=== PATIENT | female | born 1940 | race Caucasian/White ===

== ENCOUNTER 2024-12-12 14:09 | Outpatient (REF) | payer MEDICARE, SELFPAY ==
--- NOTE | ~2024-12-12 | XR_ITS ---
EXAMINATION: XR CHEST CLINICAL INFORMATION: SHORTNESS OF BREATH COMPARISON: None available. TECHNIQUE: AP lateral and oblique views of the chest, 5 views. FINDINGS: Hyperinflated lungs. Bilateral apical lung scarring. No consolidation, pleural effusion or pneumothorax. Cardiomediastinal silhouette size is normal. Calcifications in the thoracic aorta wall. Osteopenia versus osteoporosis. Multilevel thoracolumbar spondylosis. No acute cortical disruption in the ribs. 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 No acute airspace disease. Multilevel spondylosis and scoliosis. No gross acute rib fracture. Electronically signed by: Durga Greco MD 12/12/2024 02:47 PM EDT
--- OUTSIDE RECORDS SUMMARY | 2024-12-12 14:27 | XMS_ITS | Encounter Summary ---
Author Organization [facility] Address [address] [facility] [place] [address] Care Team Providers Care Carbonizer Name Role Phone Froilan Chao MD Primary Care Provider [phone] Encounter Details Date Type Department Care Team Description 09/27/2014 Meat Carver Report Medical Records [address] [place] [address] Dell Lopez Social History Tobacco Use Types Packs/Day Years Used Date Smoking Tobacco: Never Smokeless Tobacco: Never Alcohol Use Standard Drinks/Week Comments Yes 0 (1 standard drink = 0.6 oz pur e alcohol) occ Sex Assigned at Date Recorded Not on file Job Start Date Occupation Industry Not on file Not on file Not on file documented as of this encounter Plan of Treatment Not on file documented as of this encounter Visit Diagnoses Not on filedocumented in this encounter Additional Health Concerns Infection Onset Date Last Indicated Resolved Time COVID-19 01/25/2024 01/25/2024 documented as of this encounter Care Teams Carbonizer Relationship Specialty Start Date End Date Froilan Chao MD [address] [place], [place] [phone] PCP - General 10/31/09 documented as of this encounter
--- OUTSIDE RECORDS SUMMARY | 2024-12-12 14:27 | XMS_ITS | Encounter Summary ---
Author Organization [facility] Address [address] [facility] [place] [address] Care Team Providers Care Monument Mason Name Role Phone Froilan Chao MD Primary Care Provider [phone] Encounter Details Date Type Department Care Team Description 09/29/2022 Screen Roller Report Medical Records [address] [place] [address] Ciaran Mehta MD Social History Tobacco Use Types Packs/Day Years [...] documented as of this encounter Care Teams Monument Mason Relationship Specialty Start Date End Date Froilan Chao MD [address] [place] [address] PCP - General 10/31/09 documented as of this encounter
--- OUTSIDE RECORDS SUMMARY | 2024-12-12 14:27 | XMS_ITS | Encounter Summary ---
Author Organization [facility] Address [address] [place] [address] Care Team Providers Care Washing Machine Loader And Puller Name Role Phone Froilan Chao MD Primary Care Provider Encounter Details Date Type Department Care Team Description 11/03/2017 Vascular Surgeon Report Medical Records [address] [place] [address] Ciaran Mehta MD Social History Tobacco Use [...] documented as of this encounter Care Teams Washing Machine Loader And Puller Relationship Specialty Start Date End Date Froilan Chao MD [address] [place] [address] PCP - General 10/31/09 documented as of this encounter
--- OUTSIDE RECORDS SUMMARY | 2024-12-12 14:27 | XMS_ITS | Encounter Summary ---
Author Organization [facility] Address [address] [facility] [place] [address] Care Team Providers Care Icing And Glaze Maker Name Role Phone Froilan Chao MD Primary Care Provider [phone] Encounter Details Date Type Department Care Team Description 12/25/2020 Military Science Instructor Report Medical Records [address] [place] [address] Sultana Kingston MD Social History Tobacco Use Types Packs/Day [...] documented as of this encounter Care Teams Icing And Glaze Maker Relationship Specialty Start Date End Date Froilan Chao MD [address] [place] [address] PCP - General 10/31/09 documented as of this encounter
--- OUTSIDE RECORDS SUMMARY | 2024-12-12 14:27 | XMS_ITS | Encounter Summary ---
Author Organization [facility] Address [address] [facility] [place] [address] Care Team Providers Care Traffic Attendant Name Role Phone Froilan Chao MD Primary Care Provider [phone] Encounter Details Date Type Department Care Team Description 02/08/2013 Maintenance Apprentice Report Medical Records [address] [place] [address] Sultana Kingston MD Social History Tobacco Use [...] documented as of this encounter Care Teams Traffic Attendant Relationship Specialty Start Date End Date Froilan Chao MD [address] [place] [address] PCP - General 10/31/09 documented as of this encounter
--- OUTSIDE RECORDS SUMMARY | 2024-12-12 14:27 | XMS_ITS | Encounter Summary ---
Author Organization [facility] Address [address] [facility] [place] [address] Care Team Providers Care Filter Tank Operator Name Role Phone Froilan Chao MD Primary Care Provider [phone] Encounter Details Date Type Department Care Team Description 01/30/2014 Arts And Humanities Council Director Report Medical Records [address] [place] [address] Sultana Kingston MD Social History Tobacco Use [...] documented as of this encounter Care Teams Filter Tank Operator Relationship Specialty Start Date End Date Froilan Chao MD [address] [place] [address] PCP - General 10/31/09 documented as of this encounter
--- OUTSIDE RECORDS SUMMARY | 2024-12-12 14:27 | XMS_ITS | Encounter Summary ---
Author Organization [facility] Address [address] [facility] [place] [address] Care Team Providers Care Automotive Product Specialist Name Role Phone Froilan Chao MD Primary Care Provider [phone] Encounter Details Date Type Department Care Team Description 02/11/2011 Expediter Report Medical Records [address] [place] [address] Armand Guthrie MD Social History Tobacco Use Types Packs/Day [...] documented as of this encounter Care Teams Automotive Product Specialist Relationship Specialty Start Date End Date Froilan Chao MD [address] [place] [address] PCP - General 10/31/09 documented as of this encounter
--- OUTSIDE RECORDS SUMMARY | 2024-12-12 14:27 | XMS_ITS | Encounter Summary ---
Author Organization [facility] Address [address] [facility] [place] [address] Care Team Providers Care Calender Machine Operator Helper Name Role Phone Froilan Chao MD Primary Care Provider [phone] Encounter Details Date Type Department Care Team Description 05/26/2014 Business Doc Medical Records [address] [place] [address] Abstract, Provider Social History Tobacco Use Types Packs/Day Years [...] documented as of this encounter Care Teams Calender Machine Operator Helper Relationship Specialty Start Date End Date Froilan Chao MD [address] [place], [place] [phone] PCP - General 10/31/09 documented as of this encounter
--- OUTSIDE RECORDS SUMMARY | 2024-12-12 14:27 | XMS_ITS | Encounter Summary ---
Author Organization [facility] Address [address] [facility] [place] [address] Care Team Providers Care Pharmaceutical Process Engineer Name Role Phone Froilan Chao MD Primary Care Provider [phone] Encounter Details Date Type Department Care Team Description 03/11/2013 Business Doc Medical Records [address] [place] [address] Abstract, Provider Social History Tobacco Use Types [...] documented as of this encounter Care Teams Pharmaceutical Process Engineer Relationship Specialty Start Date End Date Froilan Chao MD [address] [place], [place] [phone] PCP - General 10/31/09 documented as of this encounter
--- OUTSIDE RECORDS SUMMARY | 2024-12-12 14:27 | XMS_ITS | Encounter Summary ---
Author Organization [facility] Address [address] [place] [address] Care Team Providers Care Special Shopper Name Role Phone Froilan Chao MD Primary Care Provider [phone] Encounter Details Date Type Department Care Team Description 02/04/2021 Molder Feeder Report Medical Records [address] [place] [address] Nicci Ojeda NP Social History Tobacco Use Types Packs/Day Years Used Date Smoking Tobacco: Never Smokeless Tobacco: Never Alcohol Use Standard Drinks/Week Comments Yes 0 (1 standard drink = 0.6 oz pur e alcohol) occ Sex Assigned at Date Recorded Not on file Job Start Date Occupation Industry Not on file Not on file Not on file COVID-19 Exposure Response Date Recorded In the last month, have you been in contact with someone who was confirmed or suspected to have Coronavirus / COVID-19? No / Unsure 01/22/2021 3:27 PM EDT documented as of this encounter Plan of Treatment Not on file documented as of this encounter Visit Diagnoses Not on filedocumented in this encounter Additional Health Concerns Infection Onset Date Last Indicated Resolved Time COVID-19 01/25/2024 01/25/2024 documented as of this encounter Care Teams Special Shopper Relationship Specialty Start Date End Date Froilan Chao MD [address] [place] [address] PCP - General 10/31/09 documented as of this encounter
--- OUTSIDE RECORDS SUMMARY | 2024-12-12 14:27 | XMS_ITS | Encounter Summary ---
Author Organization [facility] Address [address] [facility] [place] [address] Care Team Providers Care Food Supervisor Name Role Phone Froilan Chao MD Primary Care Provider [phone] Encounter Details Date Type Department Care Team Description 04/12/2014 Hospital Medical Records [address] [place] [address] Elpidio Parker MD Social History Tobacco Use Types Packs/Day [...] documented as of this encounter Care Teams Food Supervisor Relationship Specialty Start Date End Date Froilan Chao MD [address] [place] [address] PCP - General 10/31/09 documented as of this encounter
--- OUTSIDE RECORDS SUMMARY | 2024-12-12 14:27 | XMS_ITS | Encounter Summary ---
Author Organization [facility] Address [address] [facility] [place] [address] Care Team Providers Care Fire Sprinkler Apparatus Inspector Name Role Phone Froilan Chao MD Primary Care Provider [phone] Encounter Details Date Type Department Care Team Description 10/03/2015 Operator And Truck Driver Report Medical Records [address] [place] [address] Sultana Kingston MD Social History Tobacco Use [...] documented as of this encounter Care Teams Fire Sprinkler Apparatus Inspector Relationship Specialty Start Date End Date Froilan Chao MD [address] [place] [address] PCP - General 10/31/09 documented as of this encounter
--- OUTSIDE RECORDS SUMMARY | 2024-12-12 14:27 | XMS_ITS | Encounter Summary ---
Author Organization [facility] Address [address] [facility] [place] [address] Care Team Providers Care Staff Veterinarian Name Role Phone Froilan Chao MD Primary Care Provider [phone] Encounter Details Date Type Department Care Team Description 03/11/2021 Pt. Non Urgent Medic al Question Adult Medicine [address] [id number] Vinita Hallman PA Social History Tobacco Use Types Packs/Day Years [...] documented as of this encounter Care Teams Staff Veterinarian Relationship Specialty Start Date End Date Froilan Chao MD [address] [place] [phone] PCP - General 10/31/09 documented as of this encounter
--- OUTSIDE RECORDS SUMMARY | 2024-12-12 14:27 | XMS_ITS | Encounter Summary ---
Author Organization [facility] Address [address] [facility] [place] [address] Care Team Providers Care Roving Carrier Name Role Phone Froilan Chao MD Primary Care Provider [phone] Encounter Details Date Type Department Care Team Description 10/08/2017 Supervisor Mold Yard Report Medical Records [address] [place] [address] Sultana Kingston MD Social History Tobacco Use [...] documented as of this encounter Care Teams Roving Carrier Relationship Specialty Start Date End Date Froilan Chao MD [address] [place] [address] PCP - General 10/31/09 documented as of this encounter
--- OUTSIDE RECORDS SUMMARY | 2024-12-12 14:27 | XMS_ITS | Encounter Summary ---
Author Organization [facility] Address [address] [place] [address] Care Team Providers Care Bark Grinder Name Role Phone Froilan Chao MD Primary Care Provider [phone] Encounter Details Date Type Department Care Team Description 01/07/2013 Fire Sprinkler Service Technician Report Medical Records [address] [place] [address] Ciaran Mehta MD Social History Tobacco Use [...] documented as of this encounter Care Teams Bark Grinder Relationship Specialty Start Date End Date Froilan Chao MD [address] [place] [address] PCP - General 10/31/09 documented as of this encounter
--- OUTSIDE RECORDS SUMMARY | 2024-12-12 14:27 | XMS_ITS | Encounter Summary ---
Author Organization [facility] Address [address] [facility] [place] [address] Care Team Providers Care Event Specialist Name Role Phone Froilan Chao MD Primary Care Provider [phone] Encounter Details Date Type Department Care Team Description 03/01/2010 Automatic Coin Machine Mechanic Report Medical Records [address] [place] [address] Parisa Neri MD Social History Tobacco Use Types Packs/Day Years Used Date Smoking Tobacco: Never Alcohol Use Standard Drinks/Week Comments [...] documented as of this encounter Care Teams Event Specialist Relationship Specialty Start Date End Date Froilan Chao MD [address] [place], [place] [phone] PCP - General 10/31/09 documented as of this encounter
--- OUTSIDE RECORDS SUMMARY | 2024-12-12 14:27 | XMS_ITS | Encounter Summary ---
Author Organization [facility] Address [address] [facility] [place] [address] Care Team Providers Care Handbag Framer Name Role Phone Froilan Chao MD Primary Care Provider [phone] Encounter Details Date Type Department Care Team Description 01/20/2020 Tooling Engineering Tech Report Medical Records [address] [place] [address] Ciaran Mehta MD Social History Tobacco Use [...] documented as of this encounter Care Teams Handbag Framer Relationship Specialty Start Date End Date Froilan Chao MD [address] [place] [address] PCP - General 10/31/09 documented as of this encounter
--- OUTSIDE RECORDS SUMMARY | 2024-12-12 14:27 | XMS_ITS | Encounter Summary ---
Author Organization [facility] Address [address] [place] [address] Care Team Providers Care Funeral Location Manager Name Role Phone Froilan Chao MD Primary Care Provider [phone] Reason for Visit * Reason Comments E-prescribe Rx Request Encounter Details Date Type Department Care Team Description 06/16/2021 Refill Adult Medicine [address] [phone] Diana Robertson PA-C [address] [place] [address] E-prescribe Rx Request Social History Tobacco Use Types Packs/Day Years [...] have Coronavirus / COVID-19? No / Unsure 06/06/2021 12:56 PM EST documented as of this encounter Miscellaneous Notes * Telephone Encounter - Diana Robertson PA-C - 06/19/2021 5:36 PM EST Please schedule appt with PCP in September 2021 and route back. Diana Robertson PA-C * Telephone Encounter - Sandra Brock M.A. - 06/19/2021 11:09 AM EST MARCIAL 05/23/2021 No F/U appt * Telephone Encounter - Alina Oates - 06/18/2021 4:07 PM EST Patient would like script to be: E-PRESCRIBED/FAXED TO PHARMACY WHEN WAS THE PATIENT'S LAST APPOINTMENT IN ADULT MEDICINE? 05/23/2021 WHEN WAS THE LAST TIME THE PATIENT SAW THEIR PCP? 09/08/2018 Does patient have an upcoming appointment? Yes sent letter (THE MEDICATION REQUESTED IS ON THE MED LIST ABOVE) All of the medications requested were on the CURRENT MEDS list Did you check the Pharmacy information above?: YES Patient wants: 30 -day supply Is this a mail order prescription request ? NO If the refill is from a FAXED refill request what is the RX # listed on the fax? N/A Patients current insurance carrier is: [place] / [place] / Product Type: MEDICARE [id number] documented in this encounter Plan of Treatment Not on file documented as of this encounter Visit Diagnoses Not on filedocumented in this encounter Additional Health Concerns Infection Onset Date Last Indicated Resolved Time COVID-19 01/25/2024 01/25/2024 documented as of this encounter Care Teams Funeral Location Manager Relationship Specialty Start Date End Date Froilan Chao MD [address] [place] [address] PCP - General 10/31/09 documented as of this encounter
--- OUTSIDE RECORDS SUMMARY | 2024-12-12 14:27 | XMS_ITS | Encounter Summary ---
Author Organization [facility] Address [address] [facility] [place] [address] Care Team Providers Care Milking Machine Mechanic Name Role Phone Froilan Chao MD Primary Care Provider [phone] Encounter Details Date Type Department Care Team Description 05/01/2017 Business Doc Medical Records [address] [place] [address] Abstract, Provider Social History Tobacco Use Types [...] documented as of this encounter Care Teams Milking Machine Mechanic Relationship Specialty Start Date End Date Froilan Chao MD [address] [place], [place] [phone] PCP - General 10/31/09 documented as of this encounter
--- OUTSIDE RECORDS SUMMARY | 2024-12-12 14:27 | XMS_ITS | Encounter Summary ---
Author Organization [facility] Address [address] [facility] [place] [address] Care Team Providers Care Oracle Database Developer Name Role Phone Froilan Chao MD Primary Care Provider [phone] Encounter Details Date Type Department Care Team Description 04/16/2015 Individual Pension Adviser Report Medical Records [address] [place] [address] Sultana Kingston MD Social History Tobacco Use [...] documented as of this encounter Care Teams Oracle Database Developer Relationship Specialty Start Date End Date Froilan Chao MD [address] [place] [address] PCP - General 10/31/09 documented as of this encounter
--- OUTSIDE RECORDS SUMMARY | 2024-12-12 14:27 | XMS_ITS | Encounter Summary ---
Author Organization [facility] Address [address] [facility] [place] [address] Care Team Providers Care Spanish Teacher Name Role Phone Froilan Chao MD Primary Care Provider Encounter Details Date Type Department Care Team Description 10/06/2018 Site Identification Specialist Report Medical Records [address] [place] [address] Sultana Kingston MD Social History Tobacco Use [...] documented as of this encounter Care Teams Spanish Teacher Relationship Specialty Start Date End Date Froilan Chao MD [address] [place] [address] PCP - General 10/31/09 documented as of this encounter
--- OUTSIDE RECORDS SUMMARY | 2024-12-12 14:27 | XMS_ITS | Encounter Summary ---
Author Organization [facility] Address [address] [facility] [place] [address] Care Team Providers Care Substation Mechanic Name Role Phone Froilan Chao MD Primary Care Provider [phone] Encounter Details Date Type Department Care Team Description 10/23/2010 Irrigator Overhead Report Medical Records [address] [place] [address] Goyo Martino MD Social History Tobacco Use Types Packs/Day [...] documented as of this encounter Care Teams Substation Mechanic Relationship Specialty Start Date End Date Froilan Chao MD [address] [place] [address] PCP - General 10/31/09 documented as of this encounter
--- OUTSIDE RECORDS SUMMARY | 2024-12-12 14:27 | XMS_ITS | Encounter Summary ---
Author Organization [facility] Address [address] [place] [address] Care Team Providers Care Assembler Motor Vehicle Name Role Phone Froilan Chao MD Primary Care Provider [phone] Encounter Details Date Type Department Care Team Description 11/08/2020 Business Doc Medical Records [address] [place] [address] Abstract, Provider Social History Tobacco Use Types [...] have Coronavirus / COVID-19? No / Unsure 11/05/2020 1:10 PM EDT documented as of this encounter Plan of Treatment Not on file documented as of this encounter Visit Diagnoses Not on filedocumented in this encounter Additional Health Concerns Infection Onset Date Last Indicated Resolved Time COVID-19 01/25/2024 01/25/2024 documented as of this encounter Care Teams Assembler Motor Vehicle Relationship Specialty Start Date End Date Froilan Chao MD [address] [place] [address] PCP - General 10/31/09 documented as of this encounter
--- OUTSIDE RECORDS SUMMARY | 2024-12-12 14:27 | XMS_ITS | Encounter Summary ---
Author Organization [facility] Address [address] [facility] [place] [address] Care Team Providers Care Haz Tech Name Role Phone Froilan Chao MD Primary Care Provider [phone] Encounter Details Date Type Department Care Team Description 01/02/2014 Discharge Specialist Report Medical Records [address] [place] [address] Sultana Kingston MD Social History Tobacco Use [...] documented as of this encounter Care Teams Haz Tech Relationship Specialty Start Date End Date Froilan Chao MD [address] [place] [address] PCP - General 10/31/09 documented as of this encounter
--- OUTSIDE RECORDS SUMMARY | 2024-12-12 14:27 | XMS_ITS | Encounter Summary ---
Author Organization [facility] Address [address] [place] [address] Care Team Providers Care Italian Lecturer Name Role Phone Froilan Chao MD Primary Care Provider [phone] Encounter Details Date Type Department Care Team (Late Contact Info) Description 06/14/2024 Lab Requisition [facility] - Main Lab [address] [facility] [place] [id number] Haleigh Carrillo, [place] [address] [place] [address] Urinary tract infection, site not specified Social History Tobacco Use Types Packs/Day Years Used Date Smoking Tobacco: Never Smokeless Tobacco: Never Alcohol Use Standard Drinks/Week Comments Yes 0 (1 standard drink = 0.6 oz pur e alcohol) Comments Unknown Sex and Gender Information Value Date Recorded Sex Assigned at Not on file Legal Sex Female 3:55 PM EST Gender Identity Not on file Sexual Orientation Not on file documented as of this encounter Plan of Treatment Upcoming Encounters Date Type Department Care Team (Late Contact Info) Description 03/21/2025 3:45 PM EDT Office Visit Adult Medicine [address] [phone] Froilan Chao MD [address] [place] [address] documented as of this encounter Procedures Procedure Name Priority Date/Time Associated Diagnosis Comments BACTERIAL IDENTIFICATION AND SUSCEPTIBILITY, AEROBIC Routine 06/13/2024 12:00 AM EST Urinary tract infection, site not specified documented in this encounter Results * (ABNORMAL) Bacterial identification and susceptibility, aerobic (06/13/2024 12:00 AM EST) Culture, Bacterial ID and Sensitivity Escherichia coli(A) JUDY 06/15/2024 7:41 AM EST [facility] Comment: This is an edited result. Previous organism was Gram negative bacilli on 06/14/2024 at 1121 EST. Other Urine specimen from urinary conduit / Unknown 06/13/2024 06/14/2024 10:42 AM EST Narrative Organism Antibiotic Method Susceptibility Escherichia coli Amoxicillin/Clavulanate JUDY 4 ug/ml: Susceptible Escherichia coli Ampicillin/Sulbactam JUDY 16 ug/ml: Intermediate Escherichia coli Piperacillin/Tazobactam JUDY <=4 ug/ml: Susceptible Escherichia coli Cefazolin (Urine) JUDY 4 ug/ml: Susceptible Escherichia coli Cefoxitin JUDY <=4 ug/ml: Susceptible Escherichia coli Ceftazidime JUDY <=0.5 ug/ml: Susceptible Escherichia coli Ceftriaxone JUDY <=0.25 ug/ml: Susceptible Escherichia coli Cefepime JUDY <=0.12 ug/ml: Susceptible Escherichia coli Meropenem JUDY <=0.25 ug/ml: Susceptible Escherichia coli Amikacin JUDY 2 ug/ml: Susceptible Escherichia coli Gentamicin JUDY <=1 ug/ml: Susceptible Escherichia coli Ciprofloxacin JUDY 0.5 ug/ml: Intermediate Escherichia coli Levofloxacin JUDY 1 ug/ml: Intermediate Escherichia coli Nitrofurantoin JUDY <=16 ug/ml: Susceptible Escherichia coli Trimethoprim/Sulfamethoxazole JUDY <=20 ug/ml: Susceptible us [facility] MICROBIOLOGY - GENERAL ORDER IVA Final Result [facility] [address] [place] [address], documented in this encounter Visit Diagnoses Diagnosis Urinary tract infection, site not specified documented in this encounter Care Teams Italian Lecturer Relationship Specialty Start Date End Date Froilan Chao MD [address] [place] [address] PCP - General 10/31/09 documented as of this encounter
--- OUTSIDE RECORDS SUMMARY | 2024-12-12 14:27 | XMS_ITS | Encounter Summary ---
Author Organization [facility] Address [address] [facility] [place] [address] Care Team Providers Care Parking Lot Spotter Name Role Phone Froilan Chao MD Primary Care Provider [phone] Encounter Details Date Type Department Care Team Description 06/18/2021 Refill Adult Medicine [address] [id number] Diana Robertson PA-C [address] [place] [address] [id number] Social History Tobacco Use Types Packs/Day Years [...] encounter Miscellaneous Notes * Telephone Encounter - Kylie Ibarra C.M.A. - 06/24/2021 3:39 PM EST Message sent to schedule visit * Telephone Encounter - Diana Robertson PA-C - 06/19/2021 5:36 PM EST Please schedule appt with PCP in September 2021 and route back. Diana Robertson PA-C * Telephone Encounter - Ginger Ruth M.A. - 06/19/2021 2:48 PM EST Last office visit 05/23/21 Last filled on 05/23/21, will you give refills? documented in this encounter Plan of Treatment Not on file documented as of this encounter Visit Diagnoses Not on filedocumented in this encounter Additional Health Concerns Infection Onset Date Last Indicated Resolved Time COVID-19 01/25/2024 01/25/2024 documented as of this encounter Care Teams Parking Lot Spotter Relationship Specialty Start Date End Date Froilan Chao MD [address] [place] [address] PCP - General 10/31/09 documented as of this encounter
--- OUTSIDE RECORDS SUMMARY | 2024-12-12 14:27 | XMS_ITS | Encounter Summary ---
Author Organization [facility] Address [address] [facility] [place] [address] Care Team Providers Care Composite Worker Name Role Phone Froilan Chao MD Primary Care Provider [phone] Encounter Details Date Type Department Care Team Description 11/29/2013 E Business Specialist Report Medical Records [address] [place] [address] Sultana Kingston MD Social History Tobacco Use [...] documented as of this encounter Care Teams Composite Worker Relationship Specialty Start Date End Date Froilan Chao MD [address] [place] [address] PCP - General 10/31/09 documented as of this encounter
--- OUTSIDE RECORDS SUMMARY | 2024-12-12 14:27 | XMS_ITS | Encounter Summary ---
Author Organization [facility] Address [address] [place] [address] Care Team Providers Care Customer Service Clerk Name Role Phone Froilan Chao MD Primary Care Provider [phone] Encounter Details Date Type Department Care Team (Late st Contact Info) Description 11/11/2024 Lab Requisition [facility] Main Lab [address] [facility] [place] [address] Azalea Castanon, PA [address] [place] [address] Urinary tract infection, site not specified Social History Tobacco Use Types Packs/Day Years Used Date Smoking Tobacco: Never Smokeless Tobacco: Never Alcohol Use Standard Drinks/Week Comments Yes 0 (1 standard drink = 0.6 oz pur e alcohol) Housing Instability Answer Date Recorde d Are you worried that in the next 2 months you may not have stable housing? No 09/06/2024 Food Access & Nutrition Answer Date Rec orded Do you have access to a vari ety of food including fruits and vegetables? Yes 09/06/2024 Access to Healthcare Answer Date Record ed Within the last 3 months, jahaira valera many times did you visit the emergency department for your medical care? 0 09/06/2024 Health Literacy Answer Date Recorded How often do you need to hav e someone help you when you read instructions, pamphlets, or other written material from your doctor or pharmacy? Rarely 09/06/2024 Caregiver: How often do you need to have someone help you when you read instructions, pamphlets, or other written material from your doctor or pharmacy? Not on file 09/06/2024 Financial Risk Answer Date Recorded How hard is it for you to pa y for the very basics like food, housing, medical care, and air conditioning / heating? Somewhat hard 09/06/2024 Transportation Answer Date Recorded Has the lack of transportati on kept you from meetings, work, or from getting things needed for daily living? No Has the lack of transportati on kept you from medical appointments or from getting medications? No 09/06/2024 Social Isolation Answer Date Recorded How often do you feel lonely or isolated from those around you? Sometimes 09/06/2024 Food Risk Answer Date Recorded Within the past 12 months we worried whether our food would run out before we got money to buy more. Never true 09/06/2024 Within the past 12 months th e food we bought just didn't last and we didn't have money to get more. Never true 09/06/2024 Dependent Care Answer Date Recorded Do you need help finding or paying for care for your loved ones. For example, early childhood educator aide or elderly care for an older adult? No 09/06/2024 Education Answer Date Recorded Do you think completing more education or training, like finishing a GED, going to college, or learning a trade, would be helpful for you? N/A 09/06/2024 Employment and Income Answer Date Recor ded During the last four weeks, have you been actively looking for work? No 09/06/2024 Living Situation Answer Date Recorded What is your living situation? 0 09/06/2024 Comments No Sex and Gender Information Value Date Recorded Sex Assigned at Not on file Legal Sex Female 3:55 PM EST Gender Identity Not on file Sexual Orientation Not on file documented as of this encounter Plan of Treatment Upcoming Encounters Date Type Department Care Team (Late st Contact Info) Description 03/21/2025 3:45 PM EDT Office Visit Adult Medicine [address] [phone] Froilan Chao MD [address] [place] [phone] documented as of this encounter Procedures Procedure Name Priority Date/Time Associated Diagnosis Comments BACTERIAL IDENTIFICATION AND SUSCEPTIBILITY, AEROBIC Routine 11/10/2024 12:00 AM EDT Urinary tract infection, site not specified documented in this encounter Results * (ABNORMAL) Bacterial identification and susceptibility, aerobic (11/10/2024 12:00 AM EDT) Culture, Bacterial ID and Sensitivity Escherichia coli(A) JUDY 11/12/2024 9:[address] [facility] Other Urinary bladder structure / Unknown 11/10/2024 11/11/2024 10:45 AM EDT Narrative Organism Antibiotic Method Susceptibility Escherichia coli Amoxicillin/Clavulanate JUDY <=2 ug/ml: Susceptible Escherichia coli Ampicillin/Sulbactam JUDY <=2 ug/ml: Susceptible Escherichia coli Piperacillin/Tazobactam JUDY <=4 ug/ml: Susceptible Escherichia coli Cefazolin (Urine) JUDY <=1 ug/ml: Susceptible Escherichia coli Cefoxitin JUDY <=4 ug/ml: Susceptible Escherichia coli Ceftazidime JUDY <=0.5 ug/ml: Susceptible Escherichia coli Ceftriaxone JUDY <=0.25 ug/ml: Susceptible Escherichia coli Cefepime JUDY <=0.12 ug/ml: Susceptible Escherichia coli Meropenem JUDY <=0.25 ug/ml: Susceptible Escherichia coli Amikacin JUDY 2 ug/ml: Susceptible Escherichia coli Gentamicin JUDY <=1 ug/ml: Susceptible Escherichia coli Ciprofloxacin JUDY <=0.06 ug/ml: Susceptible Escherichia coli Levofloxacin JUDY <=0.12 ug/ml: Susceptible Escherichia coli Nitrofurantoin JUDY <=16 ug/ml: Susceptible Escherichia coli Trimethoprim/Sulfamethoxazole JUDY <=20 ug/ml: Susceptible us [facility] MICROBIOLOGY - GENERAL ORDERABLES Final Result [facility] [address] [place] [address], documented in this encounter Visit Diagnoses Diagnosis Urinary tract infection, site not specified documented in this encounter Additional Health Concerns Assessment Noted Time PHQ-9 Depression Total Score: 6 09/06/19 25 12:02 PM EST documented as of this encounter Care Teams Customer Service Clerk Relationship Specialty Start Date End Date Froilan Chao MD [address] [place] [address] PCP - General 10/31/09 documented as of this encounter
--- OUTSIDE RECORDS SUMMARY | 2024-12-12 14:27 | XMS_ITS | Encounter Summary ---
Author Organization [facility] Address [address] [facility] [place] [address] Care Team Providers Care Voltage Tester Name Role Phone Froilan Chao MD Primary Care Provider [phone] Encounter Details Date Type Department Care Team Description 12/12/2009 Release of Information Medical Records [address] [place] [address] Abstract, Provider Social History Tobacco Use Types [...] documented as of this encounter Care Teams Voltage Tester Relationship Specialty Start Date End Date Froilan Chao MD [address] [place], [place] [id number] PCP - General 10/31/09 documented as of this encounter
--- OUTSIDE RECORDS SUMMARY | 2024-12-12 14:27 | XMS_ITS | Encounter Summary ---
Author Organization [facility] Address [address] [facility] [place] [address] Care Team Providers Care Animal Nutrition Consultant Name Role Phone Froilan Chao MD Primary Care Provider [phone] Encounter Details Date Type Department Care Team Description 03/19/2011 Hospital Medical Records [address] [place] [address] Armand Guthrie MD Social History Tobacco Use [...] documented as of this encounter Care Teams Animal Nutrition Consultant Relationship Specialty Start Date End Date Froilan Chao MD [address] [place] [address] PCP - General 10/31/09 documented as of this encounter
--- OUTSIDE RECORDS SUMMARY | 2024-12-12 14:27 | XMS_ITS | Encounter Summary ---
Author Organization [facility] Address [address] [facility] [place] [address] Care Team Providers Care Desktop Support Manager Name Role Phone Froilan Chao MD Primary Care Provider [phone] Encounter Details Date Type Department Care Team Description 04/06/2019 Assistant Basketball Coach Report Medical Records [address] [place] [address] Sultana Kingston MD Social History Tobacco Use [...] documented as of this encounter Care Teams Desktop Support Manager Relationship Specialty Start Date End Date Froilan Chao MD [address] [place] [address] PCP - General 10/31/09 documented as of this encounter
--- OUTSIDE RECORDS SUMMARY | 2024-12-12 14:27 | XMS_ITS | Encounter Summary ---
Author Organization [facility] Address [address] [facility] [place] [address] Care Team Providers Care Machine Setter Automatic Name Role Phone Froilan Chao MD Primary Care Provider [phone] Encounter Details Date Type Department Care Team Description 08/27/2015 Business Doc Medical Records [address] [place] [address] Abstract, Provider Social History Tobacco Use Types [...] documented as of this encounter Care Teams Machine Setter Automatic Relationship Specialty Start Date End Date Froilan Chao MD [address] [place], [place] [phone] PCP - General 10/31/09 documented as of this encounter
--- OUTSIDE RECORDS SUMMARY | 2024-12-12 14:27 | XMS_ITS | Encounter Summary ---
Author Organization [facility] Address [address] [facility] [place] [address] Care Team Providers Care Vice President Of Instruction Name Role Phone Froilan Chao MD Primary Care Provider [phone] Encounter Details Date Type Department Care Team Description 01/31/2015 Manufacturing Test Technician Report Medical Records [address] [place] [address] Haleigh Carrillo PA-C Social History Tobacco Use Types Packs/Day Years [...] documented as of this encounter Care Teams Vice President Of Instruction Relationship Specialty Start Date End Date Froilan Chao MD [address] [place] [address] PCP - General 10/31/09 documented as of this encounter
--- OUTSIDE RECORDS SUMMARY | 2024-12-12 14:27 | XMS_ITS | Encounter Summary ---
Author Organization [facility] Address [address] [place] [address] Care Team Providers Care Fryer Operator Name Role Phone Froilan Chao MD Primary Care Provider [phone] Encounter Details Date Type Department Care Team Description 01/17/2010 Hospital Medical Records [address] [place] [address] Keo Ahn Social History Tobacco Use Types Packs/Day Years [...] documented as of this encounter Care Teams Fryer Operator Relationship Specialty Start Date End Date Froilan Chao MD [address] [place] [address] PCP - General 10/31/09 documented as of this encounter
--- OUTSIDE RECORDS SUMMARY | 2024-12-12 14:27 | XMS_ITS | Encounter Summary ---
Author Organization [facility] Address [address] [place] [address] Care Team Providers Care Shoe Caser Name Role Phone Froilan Chao MD Primary Care Provider [phone] Reason for Visit * Reason Onset Date Comments er follow up 08/02/2019 Encounter Details Date Type Department Care Team Description 08/02/2019 Telephone Adult Medicine [facility] [address] [place], [place] [phone] Froilan Chao MD [address] [place] [phone] er follow up Social History Tobacco Use Types Packs/Day Years Used Date Smoking Tobacco: Never Smokeless Tobacco: Never Alcohol Use Standard Drinks/Week Comments Yes 0 (1 standard drink = 0.6 oz pur e alcohol) occ Sex Assigned at Date Recorded Not on file Job Start Date Occupation Industry Not on file Not on file Not on file documented as of this encounter Miscellaneous Notes * Telephone Encounter - Ricki Zarate - 08/02/2019 12:54 PM EST ER follow-up appointment booked YES 08/04/19 If ER or UC follow up, can be booked with APC or MD. If hospital admission follow up MUST be booked with a physician Appointment time: 1:15PM Provider visit is [facility] patient was [facility] at: [facility] Date of visit: 07/29/19 Was this only an ER/UC visit or was the patient admitted to the hospital? ER visit onlyER visit only If patient was admitted what was the date of discharge? N/A Reason/diagnosis for visit or stay: diverticultis Was visit or stay related to an injury? NO If yes, what was the date of injury (DOI)? N/A If yes, was the injury due to N/A Tests performed: Lab: YES X-ray: YES EKG: YES Other tests. If yes, what?; N/A documented in this encounter Plan of Treatment Not on file documented as of this encounter Visit Diagnoses Not on filedocumented in this encounter Additional Health Concerns Infection Onset Date Last Indicated Resolved Time COVID-19 01/25/2024 01/25/2024 documented as of this encounter Care Teams Shoe Caser Relationship Specialty Start Date End Date Froilan Chao MD [address] [place] [address] PCP - General 10/31/09 documented as of this encounter
--- OUTSIDE RECORDS SUMMARY | 2024-12-12 14:27 | XMS_ITS | Clinical Summary ---
Author Organization [address] Address [address] [place] [address] Phone Care Team Providers Care Hog Grader Name Role Phone Froilan Chao MD Primary Care Provider [phone] Allergies Active Allergy Reactions Criticality Noted Date Comments Simvastatin Other Low 11/21/2010 Caused her to retain fluid Urpwdez-Wbt-Uag Reductase Inhibitors Constipation 06/27/2024 Medications LORazepam (ATIVAN) 0.5 mg tablet Take 1 tablet (0.5 mg total) by mouth if needed. Active timolol (TIMOPTIC) 0.5 % ophthalmic solution Administer 1 drop into both eyes 1 (one) time each day. Active traZODone (DESYREL) 50 mg tablet Take 1.5 tablets (75 mg total) by mouth at bedtime as needed. Active omega 9-kno-upd-fish oil (Fish OiL) 1,000 (120-180) mg capsule Take by mouth. 6 Active magnesium 250 mg tablet Take 1 tablet by mouth 1 (one) time each day. Active multivit with minerals/lutein (MULTIVITAMIN 50 PLUS ORAL) Take by mouth. 6 Active hydroCHLOROthia zide (HYDRODIURIL) 25 mg tablet TAKE 1 TABLET BY MOUTH EVERY DAY 90 tablet 1 5 Active diclofenac (VOLTAREN) 1 % topical gel APPLY 2 G TOPICALLY TWICE A DAY 100 g 1 5 Active Active Problems Problem Noted Date Diagnosed Date Vulvar intraepithelial neoplasia (ALTON) grade 3 1 08/28/2023 Primary hypertension 03/10/2024 Depression, major, recurrent , moderate ([facility] V24, [facility] V28) 11/28/2014 Overweight 06/06/2011 Osteopenia 05/23/2011 High cholesterol 12/11/2009 Encounters Date Type Department Care Team Description 11/11/2024 Lab Requisition [facility] - Main Lab [address] [facility] [place] [address] [place] Urinary tract infection, site not specified from Last 3 Months Immunizations Name Administration Dates Next Due Influenza, Unspecified 04/27/2020 Pneumococcal conjugate 13 va lent (Prevnar 13, PCV13) 2mo and older 04/30/2017 Pneumococcal polysaccharide 23 valent (Pneumovax 23) 2yo and older 05/24/2014 Tdap Tetanus diptheria acell ular pertussis (Boostrix; Adacel) 7yo and older 11/21/2010 Zoster Live 11/25/2007 Zoster recombinant (Shingrix) 19yo and older 10/2019 Surgical History Surgery Date Site/Laterality Comments TONSILLECTOMY PROCEDURE: HISTORICAL TONSILLECTOMY COLONOSCOPY 09/08/2005 PROCEDURE: HISTORICAL COLONOSCOPY; COMMENT: left sided diverticulosis, internal hemorroids Medical History Medical History Date Comments Depression DX:Depression Insomnia DX:Insomnia Anxiety disorder DX:Anxiety diso rder Colon polyp DX:Colon polyp; COMMENT: adenamatous colon polyp Hyperlipidemia DX:Hyperlipidemi a GERD (gastroesophageal reflux disease) DX:GERD (gastroesophageal reflux disease) Constipation DX:Constipation H. pylori infection DX:H. pylori infection; COMMENT: rx prevpak 12/25/2006 Primary hypertension 03/10/2024 Family History Medical History Relation Name Comments Colon cancer Father age 72 Other cancer Mother brain tumor dec eased age 62 Other: multiple sclerosis Mother Diabetes Uncle Blindness Neg Hx Cataracts Neg Hx Glaucoma Neg Hx Macular degeneration Neg Hx Strabismus Neg Hx Relation Name Status Comments Father Mother Uncle Social History Tobacco Use Types Packs/Day Years Used Date Smoking Tobacco: Never Smokeless Tobacco: Never Tobacco Cessation:Counseling Given: Not Answered Alcohol Use Standard Drinks/Week Comments Yes 0 [...] Record ed Within the last 3 months, ho w many times did you visit the emergency [...] care for your loved ones. For example, vocational childcare teacher or elderly care for an older adult? [...] on file Sexual Orientation Not on file Obstetrics History Last Filed Vital Signs Vital Sign Reading Time Taken Comments Blood Pressure 164/80 09/13/2024 2:11 PM EST C Pulse 80 09/13/2024 2:11 PM EST Temperature 36.5 ??C (97.7 ??F) 09/13/2024 2:11 PM ES T Respiratory Rate 14 09/13/2024 2:11 PM EST Oxygen Saturation - - Inhaled Oxygen Concentration - - Weight 65.3 kg (144 lb) 09/13/2024 2:11 PM EST Height 160 cm (5' 3 ) 08/30/2024 1:15 PM EST Body Mass Index 25.51 08/30/2024 1:15 PM EST Plan of Treatment Upcoming Encounters Date Type Department Care Team (Late st Contact Info) Description 03/21/2025 3:45 PM EDT Office Visit Adult Medicine [facility] [address] [place] [address] [phone] Froilan Chao MD [address] [place] [phone] Health Maintenance Due Date Last Done Comments RSV Immunization Adult Patients (1 - 1-dose 75+ series) 2013 Zoster Vaccines (2 of 2) 07/25/2020 05/30/2020, 05/0 07/2007 DTaP,Tdap,and Td Vaccines (2 - Td or Tdap) 11/21/2020 11/21/2010 COVID-19 Vaccine (7 - Mixed Product risk season) 2024 05/30/2024, 05/13/2023, 05/14/2022, Additional history exists Medicare Annual Wellness Visit 03/10/2025 03/10/2024 Influenza Vaccine (Season Ended) 2025 04/27/2020, 04/26/2020 Depression Screening 09/06/2025 09/06/2024, 03/10/20 24 Social Influencers of Health Screening 09/06/2025 09/06/2024 Falls Risk Assessment 09/13/2025 09/13/2024, 024 Hypertension/CHF/CAD Annual BMP Blood Test 09/13/2025 09/13/2024, 03/10/2024, 03/10/2024 Cholesterol Screening (Lipid Panel) 09/21/2028 09/21/2023 Osteoporosis Screening (Bone Density Screening) 11/05/2030 11/05/2020 Pneumococcal Vaccine: 50+ Years Completed 04/30/2017, 05/24/2014 HIB Vaccines Aged Out No longer eligi ble based on patient's age to complete this topic HPV Vaccines Aged Out No longer eligi ble based on patient's age to complete this topic Hepatitis A Vaccines Aged Out No long er eligible based on patient's age to complete this topic Hepatitis B Vaccines Aged Out No long er eligible based on patient's age to complete this topic IPV Vaccines Aged Out No longer eligi ble based on patient's age to complete this topic MMR Vaccines Aged Out No longer eligi ble based on patient's age to complete this topic Meningococcal ACWY Vaccine Aged Out N o longer eligible based on patient's age to complete this topic Meningococcal B Vaccine Aged Out No l onger eligible based on patient's age to complete this topic RSV Immunization Patients Under 20 months Aged Out No longer eligible based on patient's age to complete this topic Varicella Vaccines Aged Out No longer eligible based on patient's age to complete this topic Procedures Procedure Name Priority Date/Time Associated Diagnosis Comments BACTERIAL IDENTIFICATION AND SUSCEPTIBILITY, AEROBIC Routine 11/10/2024 12:00 AM EDT Urinary tract infection, site not specified BASIC METABOLIC PANEL Routine 09/13/2024 3:20 PM EST Primary hypertension DEPRESSION SCREENING Routine 03/10/2024 LIPID PANEL Routine 09/21/2023 FALLS RISK ASSESSMENT Routine 09/15/2023 DXA BONE DENSITY STUDY 1+ SITS AXIAL SKEL Routine 11/05/2020 1:34 PM EDT Other specified disorders of bone density and structure, unspecified thigh from Last 3 Months or Most Recently Relevant to Health Maintenance Results * (ABNORMAL) Bacterial identification and susceptibility, aerobic (11/10/2024 12:00 AM EDT) [facility] Culture, Bacterial ID and Sensitivity Escherichia coli(A) JUDY 11/12/2024 9:44 AM EDT [facility] Other Urinary bladder structure / Unknown [...] Escherichia coli Trimethoprim/Sulfamethoxazole JUDY <=20 ug/ml: Susceptible [facility] LAB MICROBIOLOGY - GENERAL ORDERABLES Final Result [facility] [address] [place] [address], * (ABNORMAL) Basic metabolic panel (09/13/2024 3:20 PM EST) [facility] Sodium 137 133 - 145 mmol/L LAB CHEMISTRY METHOD 09/13/2024 7:02 PM EST [facility] Potassium 3.7 3.5 - 5.5 mmol/L LAB CHEMISTRY METHOD 09/13/2024 7:02 PM [facility] Chloride 99 96 - 110 mmol/L LAB CHEMISTRY METHOD 09/13/2024 7:02 PM [facility] CO2 32 21 - 32 mmol/L LAB CHEMISTRY METHOD 09/13/2024 7:02 PM [facility] Anion Gap 6 3 - 11 LAB CHEMISTRY METHOD 09/13/2024 7:02 PM [facility] Glucose 108(H) 70 - 100 mg/dL LAB CHEMISTRY METHOD 09/13/2024 7:02 PM [facility] BUN 15 5 - 25 mg/dL LAB CHEMISTRY METHOD 09/13/2024 7:02 PM [facility] Creatinine 0.88 0.50 - 1.10 mg/dL LAB CHEMISTRY METHOD 09/13/2024 7:02 PM [facility] eGFR 64 >=60 mL/min/1. 73m2 LAB CHEMISTRY METHOD 09/13/2024 7:02 PM [facility] Comment:Calculation based on the??Chronic Kidney Disease Epidemiology Collaboration (CKD-EPI) equation refit??without adjustment for race. BUN/Creatinine Ratio 17.0 LAB CHEMISTRY METHOD 09/13/2024 7:02 PM [facility] Calcium 10.2 8.5 - 10.5 mg/dL LAB CHEMISTRY METHOD 09/13/2024 7:02 PM [facility] Blood Venous blood specimen / Unknown Venipuncture / Unknown 09/13/2024 3:20 PM EST 09/13/2024 3:20 PM EST us Froilan Chao MD LAB BLOOD ORDERABLES Final Resu lt [facility] [address] [place] [address], [place] [phone] * Depression Screening (03/10/2024) [facility] Depression Screening abstracted us Historical Provider HEALTH MAINTENANCE Final Result * (ABNORMAL) Lipid panel (09/21/2023) LDL/HDL Ratio 4 0 - 4 Triglycerides 169(A) 0 - 150 mg/dL Cholesterol 204(A) 0 - 200 mg/dL HDL 46 >=40 mg/dL LDL Cholesterol 125(A) 0 - 100 mg/dL Blood Venous blood specimen / Unknown Result [facility] Historical Provider LAB BLOOD ORDERABLES Emilie l Result * Hm Falls Risk Assessment (09/15/2023) Falls Risk Assessment abstracted [facility] Provider [facility]ALTH [facility] Final Result * DXA BONE DENSITY STUDY 1+ SITS AXIAL SKEL (11/05/2020 1:34 PM EDT) Anatomical Region Laterality Modality Bone Densitometr y 05/30/2020 1:25 PM EST Narrative 11/05/2020 6:42 PM EDT BONE DENSITY ? Lumbar Spine T-score is +0.6 ?? (SD relative to 20-29 y/o adult) Z-score is +3.3 ??(SD relative to age matched peers) This is normal by criteria defined by the WHO. Left Hip T-score is -1.7 Z-score is +0.8 This is consistent with osteopenia by criteria defined by the WHO. Comparison exam(s): no statistically significant change in the bone density of the lumbar spine when compared to most recent bone density examination ?? Confidence level is +/-95%. Impression: Based on the World Health Organization criteria, Pia Schmid should be classified as having osteopenia. This patient has a 25% risk of major osteoporotic fracture and a 15% risk of hip fracture over the next 10 years. (World Health Organization Fracture Risk Assessment) [facility] Department of Internal Medicine recommends using National Osteoporosis Foundation (NOF) guidelines in treatment decisions related to osteoporosis. NOF guidelines suggest considering treatment for postmenopausal women and men aged 50 or older presenting with the following: History of hip or vertebral fracture. T-score less than or equal to -2.5 (DXA) at the femoral neck, total hip, or spine, after appropriate evaluation to exclude secondary causes. Low bone mass (T-score between -1.0 and -2.5 at the femoral neck or spine) AND a 10-year probability of a hip fracture greater than or equal to 3% OR a 10-year probability of a major osteoporosis-related fracture greater than or equal to 20% based on the [place]-adapted WHO algorithm Please note that all treatment decisions require clinical judgment and consideration of individual patient factors, including patient preferences, co-morbidities, previous drug use, risk factors not captured in the FRAX model (e.g., frailty, falls, vitamin D deficiency, increased bone turnover, interval significant decline in bone density) and possible under- or over-estimation of fracture risk by FRAX. Procedure Note Abbie Horton MD - 07/15/2022 BONE DENSITY Lumbar Spine T-score is +0.6 (SD relative to 20-29 y/o adult) Z-score is +3.3 (SD relative to age matched peers) This is normal by criteria defined by the WHO. Left Hip T-score is -1.7 Z-score is +0.8 This is consistent with osteopenia by criteria defined by the WHO. Comparison exam(s): no statistically significant change in the bonedensity of the lumbar spine when compared to most recent bone densityexamination Confidence level is +/-95%. Impression: Based on the World Health Organization criteria, Pia Schmid should beclassified as having osteopenia. This patient has a 25% risk of majorosteoporotic fracture and a 15% risk of hip fracture over the next 10years. (World Health Organization Fracture Risk Assessment) [facility] Department of Internal Medicine recommendsusing National Osteoporosis Foundation (NOF) guidelines in treatmentdecisions related to osteoporosis. NOF guidelines suggest consideringtreatment for postmenopausal women and men aged 50 or older presentingwith the following: History of hip or vertebral fracture. T-score less than or equal to -2.5 (DXA) at the femoral neck, total hip,or spine, after appropriate evaluation to exclude secondary causes. Low bone mass (T-score between -1.0 and -2.5 at the femoral neck or spine)AND a 10-year probability of a hip fracture greater than or equal to 3% ORa 10-year probability of a major osteoporosis-related fracture greaterthan or equal to 20% based on the [place]-adapted WHO algorithm Please note that all treatment decisions require clinical judgment andconsideration of individual patient factors, including patientpreferences, co-morbidities, previous drug use, risk factors not capturedin the FRAX model (e.g., frailty, falls, vitamin D deficiency, increasedbone turnover, interval significant decline in bone density) and possibleunder- or over-estimation of fracture risk by FRAX. [place] IMG DXA PROCEDURES Final Resu lt from Last 3 Months or Most Recently Relevant to Health Maintenance Insurance MEDICARE [facility] Care Teams Hog Grader Relationship Specialty Start Date End Date Froilan Chao MD [address] [place] [id number] PCP - General 10/31/09
--- OUTSIDE RECORDS SUMMARY | 2024-12-12 14:28 | XMS_ITS | Encounter Summary ---
Author Organization [facility] Address [address] [facility] [place] [address] Care Team Providers Care Integrated Campaign Manager Name Role Phone Froilan Chao MD Primary Care Provider [phone] Encounter Details Date Type Department Care Team Description 06/18/2016 Wellness Visit Medical Records [address] [place] [address] Froilan Chao MD [address] [place] [address] Social History Tobacco Use Types Packs/Day Years [...] documented as of this encounter Care Teams Integrated Campaign Manager Relationship Specialty Start Date End Date Froilan Chao MD [address] [place] [address] PCP - General 10/31/09 documented as of this encounter
--- OUTSIDE RECORDS SUMMARY | 2024-12-12 14:28 | XMS_ITS | Encounter Summary ---
Author Organization [facility] Address [address] [facility] [place] [address] Care Team Providers Care Production Worker Name Role Phone Froilan Chao MD Primary Care Provider [phone] Encounter Details Date Type Department Care Team Description 02/01/2016 Php Engineer Report Medical Records [address] [place] [address] Shannon Saab Social History Tobacco Use Types Packs/Day Years [...] documented as of this encounter Care Teams Production Worker Relationship Specialty Start Date End Date Froilan Chao MD [address] [place] [address] PCP - General 10/31/09 documented as of this encounter
--- OUTSIDE RECORDS SUMMARY | 2024-12-12 14:28 | XMS_ITS | Encounter Summary ---
Author Organization [facility] Address [address] [facility] [place] [address] Care Team Providers Care Waitress Name Role Phone Froilan Chao MD Primary Care Provider [phone] Encounter Details Date Type Department Care Team Description 07/05/2012 Release of Information Medical Records [address] [place] [address] Abstract, Provider Social History Tobacco Use Types [...] documented as of this encounter Care Teams Waitress Relationship Specialty Start Date End Date Froilan Chao MD [address] [place], [place] [phone] PCP - General 10/31/09 documented as of this encounter
--- OUTSIDE RECORDS SUMMARY | 2024-12-12 14:28 | XMS_ITS | Encounter Summary ---
Author Organization [facility] Address [address] [place] [address] Care Team Providers Care Drywall Taper Helper Name Role Phone Froilan Chao MD Primary Care Provider [phone] Encounter Details Date Type Department Care Team Description 07/01/2012 Pt. Non Urgent Medical Question Adult Medicine [facility] [address] [place] [phone] Froilan Chao MD [address] [place] [address] [phone] Social History Tobacco Use Types Packs/Day Years Used Date Smoking Tobacco: Never Smokeless Tobacco: Never Alcohol Use Standard Drinks/Week Comments Yes 0 (1 standard drink = 0.6 oz pur e alcohol) occ Sex Assigned at Date Recorded Not on file Job Start Date Occupation Industry Not on file Not on file Not on file documented as of this encounter Progress Notes * Emma Jon L.P.N. - 07/01/2012 4:22 PM ESTFrom: LUCHO SCHMID To: Froilan Caho MD Sent: ThuJul 01, 2012 4:15 PM Subject: Bone Density Test Report Would you please send a copy of my most recent Bone Density Test to my Machine Design Engineer, Dr. Cristopher Sanchez, [address] [facility], [address] [facility], [place] [address]. . Thank you very much. documented in this encounter Plan of Treatment Not on file documented as of this encounter Visit Diagnoses Not on filedocumented in this encounter Additional Health Concerns Infection Onset Date Last Indicated Resolved Time COVID-19 01/25/2024 01/25/2024 documented as of this encounter Care Teams Drywall Taper Helper Relationship Specialty Start Date End Date Froilan Chao MD [address] [place] [phone] PCP - General 10/31/09 documented as of this encounter
--- OUTSIDE RECORDS SUMMARY | 2024-12-12 14:28 | XMS_ITS | Encounter Summary ---
Author Organization [facility] Address [address] [facility] [place] [address] Care Team Providers Care Gusset Ripper Name Role Phone Froilan Chao MD Primary Care Provider [phone] Encounter Details Date Type Department Care Team Description 01/07/2012 Acid Patroller Report Medical Records [address] [place] [address] Ciaran Mehta MD Social History Tobacco Use [...] documented as of this encounter Care Teams Gusset Ripper Relationship Specialty Start Date End Date Froilan Chao MD [address] [place] [address] PCP - General 10/31/09 documented as of this encounter
--- OUTSIDE RECORDS SUMMARY | 2024-12-12 14:28 | XMS_ITS | Clinical Summary ---
Author Organization [facility] Address [address] [facility] [place] [address] Care Team Providers Care Mountain Guide Name Role Phone Froilan Chao MD Primary Care Provider [phone] Allergies Active Allergy Reactions Severity Noted Date Comments Simvastatin OTHER Low 11/21/2010 Caused her to retain fluid Medications Medication Sig Dispensed Refills Start Date End Date Status Multiple Vitamin (MULTI-VITAMIN OR) 1 tablet daily 0 Ac tive [place]-3 Fatty Acids (FISH OIL) 435 MG Cap Take by mouth. 60 Cap 0 06/11/2020 Active timolol (TIMOPTIC) 0.5 % ophthalmic solution 1 Drop daily. 0 Active lorazepam (ATIVAN) 0.5 MG tablet Take 1 Tablet by mouth daily as needed. 0 Active Cholecalciferol (Vitamin D3) 25 MCG Tab Take 1 Tablet by mouth daily. 0 Active Magnesium 250 MG Tab Take 1 Tablet by mouth daily. 0 Active COLLAGEN OR Take by mouth. 0 Active trazodone (DESYREL) 50 MG tablet Take 1-1.5 Tablets by mouth at bedtime as needed for Sleep. 45 Tablet 0 03/10/2024 Active hydrochlorothiazide (HYDRODIURIL) 25 MG tablet Take 1 Tablet by mouth daily. 90 Tablet 1 03/10/2024 Active Active Problems Problem Noted Date Primary hypertension 03/10/2024 Depression, major, recurrent, moderate 0 11/28/2014 Overweight 06/06/2011 Osteopenia 05/23/2011 High cholesterol 12/11/2009 Immunizations Name Administration Dates Next Due COVID-19 (Moderna) PT Reported 06/12/2021 COVID-19 (Pfizer) 09/20/2020,08/30/2020 Influenza Flu (PT Reported) 04/27/2020 Pneumoccoccal(Adult) Polysaccharide PPSV23 05/24 Pneumococcal Conjugate PCV-13 04/30/2017 Shingrix (Recombinant zoster vaccine) 05/30/2020 Tdap 11/21/2010 Zostavax (Patient Reported) 11/25/2007 Family History Medical History Relation Name Comments CA Colon Father age 72 Cancer, Other Mother brain tumor de ceased age 62 multiple sclerosis Mother Diabetes Uncle Blindness Negative Hx Cataract Negative Hx Glaucoma Negative Hx Macular Degeneration Negative Hx Strabismus Negative Hx Relation Name Status Comments Father Mother Uncle Social History Tobacco Use Types Packs/Day Years Used Date Smoking Tobacco: Never Smokeless Tobacco: Never Alcohol Use Standard Drinks/Week Comments Yes 0 (1 standard drink = 0.6 oz pur e alcohol) occ Sex Assigned at Date Recorded Not on file Job Start Date Occupation Industry Not on file Not on file Not on file Last Filed Vital Signs Vital Sign Reading Time Taken Comments Blood Pressure 139/73 03/10/2024 2:52 PM EDT Pulse 87 03/10/2024 2:52 PM EDT Temperature 36.7 ??C (98 ??F) 03/10/2024 2:52 PM EDT Respiratory Rate 16 03/10/2024 2:52 PM EDT Oxygen Saturation 96% 02/04/2024 3:31 PM EDT Inhaled Oxygen Concentration - - Weight 67.1 kg (148 lb) 03/10/2024 2:52 PM EDT Height 160 cm (5' 3 ) 02/04/2024 3:31 PM EDT Body Mass Index 26.22 02/04/2024 3:31 PM EDT Plan of Treatment Health Maintenance Due Date Last Done Comments SHINGLES VACCINE (2 of 2) 07/25/2020 05/30/2020 DTAP/TDAP/TD (2 - Td or Tdap) 11/21/2020 11/21/2010 COLON CANCER SCREENING 12/18/2020 6, 10/23/2010 (External Completion), 10/23/2010 (External Completion), Additional history exists MAMMOGRAM 06/11/2022 06/11/2021, 05/27 (External Completion), 06/04/2021, Additional history exists BONE DENSITY SCREENING 11/05/2022 , 08/23/2015, 03/11/2013, Additional history exists Covid-19 Vaccine (4 2022-2 4 season) 2024 06/12/2021, 09/20/2020, 08/30/2020 BMI CHECK/ADVISE 07/27/2024 04/30/2017 FALL RISK ASSESSMENT 09/15/2024 09/15/2023, 08/14/2022, 05/23/2021, Additional history exists DEPRESSION SCREEN 03/10/2025 03/10/2024, , 09/08/2018, Additional history exists INFLUENZA (Season Ended) 2025 04/27/2020 CHOLESTEROL SCREENING 09/21/2028 09/21/2023 , 08/14/2022, 06/05/2020, Additional history exists PNEUMOCOCCAL VACCINE Completed 04/30/2017, 05/24/20 14 Additional Health Concerns Infection Onset Date Last Indicated COVID-19 01/25/2024 01/25/2024 Insurance Payer Benefit Plan / Group Subscriber ID Effective Dates Phone Address Type MEDICARE-[place] A [place] [id number] 2012-Prese nt [address] [place] [id number] MEDICARE [id number] CE [place] MED[place] SUPP[place] [id number] 2012-Prese nt [address] [place] [address] MEDICARE [id number] CE MEDICARE-[place] A [place] [id number] 2012-Prese nt [address] [facility] [phone] MEDICARE [id number] [place] [id number] 2012-Prese nt [address] [place] [address] MEDICARE [id number] CE MEDICARE-M A MCR MCR F 1+/50% [id number] 2012-[facility] [address] [place] [address] MEDICARE [id number] CE [place] BCBS IND F 1+/$0 [id number] 2012-[facility] [address] [place] [address] INDEMNITY Advance Directives For more information, please contact: [phone] Latest Code Status on File Code Status Date Activated Date Inactivated Comments Full Code 05/23/2023 1:56 PM molst sig ayana 03/12/2023 Care Teams [place] Guide Relationship Specialty Start Date End Date Froilan Chao MD [address] [place] [phone] PCP - General 10/31/09
--- OUTSIDE RECORDS SUMMARY | 2024-12-12 14:28 | XMS_ITS | Encounter Summary ---
Author Organization [facility] Address [address] [place] [address] Care Team Providers Care Script Reader Name Role Phone Froilan Chao MD Primary Care Provider [phone] Encounter Details Date Type Department Care Team Description 09/30/2016 Deputy Sheriff Generalist/Bailiff Report Medical Records [address] [place] [address] Sultana Kingston MD Social History Tobacco Use [...] documented as of this encounter Care Teams Script Reader Relationship Specialty Start Date End Date Froilan Chao MD [address] [place] [address] PCP - General 10/31/09 documented as of this encounter
--- OUTSIDE RECORDS SUMMARY | 2024-12-12 14:28 | XMS_ITS | Encounter Summary ---
Author Organization [facility] Address [address] [facility] [place] [address] Care Team Providers Care Heel Scorer Name Role Phone Froilan Chao MD Primary Care Provider [phone] Encounter Details Date Type Department Care Team Description 08/12/2016 Education Program Specialist Report Medical Records [address] [place] [address] Shannon Saab Social History Tobacco Use Types [...] documented as of this encounter Care Teams Heel Scorer Relationship Specialty Start Date End Date Froilan Chao MD [address] [place] [address] PCP - General 10/31/09 documented as of this encounter
--- OUTSIDE RECORDS SUMMARY | 2024-12-12 14:28 | XMS_ITS | Encounter Summary ---
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
== END 2024-12-12 14:10 | disposition home or self-care (01) ==
LOC: HO.XRAY 14:09
PROVIDERS: PCP Internal Medicine; Visit Provider Registered Nurse
DX: R06.02 Shortness of breath (principal)
CPT/HCPCS: 71048

== ENCOUNTER → 2024-12-12 14:21 | Outpatient (BNV) | payer MEDICARE, SELFPAY | PROVIDERS: PCP Internal Medicine; Visit Provider Radiology Diagnostic Radiology | DX: R06.02 Shortness of breath (principal) | CPT/HCPCS: 74018 ==

== ENCOUNTER 2025-05-01 15:04 | Observation (INO) | payer MEDICARE, SELFPAY ==
--- NOTE | ~2025-05-01 | CT_ITS ---
CLINICAL HISTORY: nausea CT ABDOMEN AND PELVIS WITH CONTRAST Comparison: None provided Findings: No basilar consolidation or pleural effusion. Scattered atelectasis and/or scarring. Trace pericardial effusion. No acute abnormalities in the solid organs. Tiny cyst or hemangioma in the hepatic dome. No urolithiasis. Partly contracted gallbladder. No large calcified gallstone or significant biliary ductal dilatation. Prominent aortic and arterial calcifications. No AAA. No bowel obstruction, pneumoperitoneum, or pneumatosis. Large duodenal diverticulum. The stomach is underdistended limiting evaluation for wall thickening. No significant perigastric edema. Small hiatal hernia. Multiple central mesenteric lymph nodes measure up to 1.7 x 0.8 cm. Multiple retroperitoneal lymph nodes measure up to 1.0 x 0.7 cm. Colonic diverticulosis. No acute diverticulitis. The appendix is identified. No acute appendicitis. Prominent appearing uterus for age could be related to multiparity and/or fibroids. Trace free fluid in the posterior cul-de-sac. Urinary bladder unremarkable. The bones are intact. IMPRESSION: 1. No obstructive or acute inflammatory changes in the gastrointestinal and genitourinary tracts. 2. Diverticulosis coli. 3. Additional findings as above. This document has been electronically signed by: Amy Pickard DO on 05/01/2025 19:06:01
--- NOTE | ~2025-05-01 | CT_ITS ---
CLINICAL HISTORY: cva CTA HEAD WITH CONTRAST, 3D POSTPROCESSING. Comparison: CT/SR - CT HEAD WITHOUT IV CONTRAST - 05/01/25 15:33 EDT Findings: Vertebrobasilar system: Patent. Cerebellar arteries: Patent. Intracranial carotid arteries: No occlusion or significant stenosis. Posterior cerebral arteries: Patent. No occlusion or aneurysm. Anterior cerebral arteries: Patent. No occlusion or aneurysm. Middle cerebral arteries: Patent. No occlusion or aneurysm. No enhancing intracranial mass lesion. Dural venous sinuses are patent. Please see separate report for CT head/brain. Impression: 1. Patent CTA head. This document has been electronically signed by: Amy Pickard DO on 05/01/2025 18:43:43
--- NOTE | ~2025-05-01 | CT_ITS ---
EXAMINATION: CT HEAD WITHOUT CONTRAST CLINICAL INFORMATION: Speech difficulty COMPARISON: None available. TECHNIQUE: Contiguous axial imaging was performed from the skull base to vertex without intravenous administration of contrast. This CT examination was performed using dose optimization techniques as appropriate, variously including the following: *Automated exposure control *Adjustment of mA and/or kV according to patient size (this includes techniques or standardized protocols for targeted exams where dose is matched to indication/reason for exam; i.e. extremities or head) *Use of iterative reconstruction technique FINDINGS: There is no acute ischemic change. Periventricular white matter hypodensities are evident and most pronounced in the frontal lobes There is no intracranial hemorrhage. There is no mass-effect or midline shift. Basal cisterns and ventricles are within normal limits for age/cerebral volume. Orbits are symmetrical and unremarkable. Paranasal sinuses and mastoid air cells are pneumatized. There are no bony abnormalities. CT/CT head/brain wo IV con IMPRESSION: No acute intracranial abnormality. Chronic white matter changes likely related to small vessel disease. Electronically signed by: Guanaco Harvey MD 05/01/2025 03:52 PM EDT
--- NOTE | ~2025-05-01 | MR_ITS ---
EXAMINATION: MR BRAIN WITHOUT CONTRAST CLINICAL INFORMATION: TIA COMPARISON: No prior MRI. CTA head and CT angiography head 05/01/2025. TECHNIQUE: MRI of the brain was obtained using routine sequences without contrast. Examination performed on a 1.5 Diana Siemens high-field unit. FINDINGS: There is no diffusion restriction. There is no intracranial hemorrhage, acute infarction, mass effect, or edema. Ventricles, sulci, and cisterns are somewhat diffusely prominent in keeping with age-related cerebral and cerebellar volume loss. No shift of midline. No abnormal hemosiderin deposition is identified. There are a scattered punctate and minimally confluent foci of white matter T2 hyperintensity in the periventricular, subcortical, and hemispheric deep white matter. These foci are nonspecific but statistically most likely relate to small vessel ischemic changes. Midline structures appear normally formed. The pituitary gland appears normal. Posterior fossa structures appear normal. Cerebellar tonsils are appropriately located. Major flow voids are preserved within the skull base. The globes and orbital contents demonstrate no abnormalities. There are bilateral lens replacements. Paranasal sinuses are clear bilaterally. The mastoids and tympanic cavities are normally aerated. Extracranial soft tissues demonstrate no abnormalities. No suspicious bone marrow changes are evident. Atlantoaxial joint demonstrates moderate degenerative changes. MR/MR head/brain wo con IMPRESSION: 1. No evidence of intracranial hemorrhage, acute infarction, mass effect, or edema. 2. Age-related cerebral and cerebellar volume loss, mild to moderate changes of small vessel ischemia. Electronically signed by: Lavell Garcia MD 05/02/2025 01:18 PM EDT
[2025-05-01 15:16] VITALS: BP 152/69; PULSE 80; RESP 16; TEMP 36.1; O2SAT 97; BMI 25.5
--- NOTE | 2025-05-01 15:18 | ECG_ITS ---
Test Reason : difficulty finding words Blood Pressure : */* mmHG Vent. Rate : 76 BPM Atrial Rate : 76 BPM P-R Int : 164 ms QRS Dur : 110 ms QT Int : 394 ms P-R-T Axes : 57 64 42 degrees QTcB Int : 443 ms Sinus rhythm with Premature atrial complexes Otherwise normal ECG No previous ECGs available Referred By: Christ Chowdary Electronically Signed By: LD DÍAZ MD
--- NOTE | 2025-05-01 15:20 | ED_ITS ---
HPI - General Adult General Chief complaint: Neuro Symptoms/Deficit Stated complaint: erika symptons Time Seen by Provider: 05/01/25 15:53 Source: patient Mode of arrival: ambulatory Limitations: no limitations History of Present Illness ED Provider: Dr. Kong [facility] narrative: This is a 84-year-old female history of hypertension and vertigo presented hospital today for a speech difficulty. Patient stated that she has trouble with her expressive speech. This started around 18:00 yesterday. Patient was talking to her daughter where they noticed that she has speech issue. Patient is not currently on any blood thinners. No history of stroke in the past. Patient stated that she is able to formulate the words in her head however trouble speaking. No other abnormality found. Patient is not weak unilaterally. Patient does not have issue with her balance. No symptoms of dysuria or increased urinary frequency from normal. Related Data Home Medications ?Medication ?Instructions ?Recorded ?Confirmed diclofenac sodium 1 % topical gel 2 g topical QID PRN Pain 05/01/25 05/01/25 hydrochlorothiazide 25 mg tablet 25 mg PO DAILY 05/01/25 peg [id number] 1 1 drp ophthalmic (eye) DAILY PRN 05/01/25 05/01/25 %-0.2 %-0.2 % eye drops (Dry Eye Dry Eye(S) Relief) timolol maleate 0.5 % eye drops 1 drp ophthalmic (eye) DAILY 05/01/25 05/01/25 trazodone 50 mg tablet 50 mg PO BEDTIME PRN sleep 1 05/01/25 Previous Rx's ?Medication ?Instructions ?Recorded meloxicam 7.5 mg tablet 7.5 mg PO DAILY 30 days #30 tabs 02/28/25 lorazepam 0.5 mg tablet 0.5 mg PO BEDTIME PRN anxiet y 30 04/17/25 days #30 tabs Allergies Allergy/AdvReac Type Severity Reaction Status Date / Time simvastatin Allergy Unknown Unknown Verified 05/01/25 15:20 Review of Systems 2 Review of Systems: Pertinent review of systems as mentioned in HPI. All other system otherwise negative. PMFSH Past Medical History [facility] Narrative: Medical history as mentioned in HPI Social History Social History Patient Tobacco Use Status: Never used Tobacco Advance Directives: Yes Advance Directives Information Provided: No Advance Directives on File: No Nutrition Risks: No Nutritional Risk Physical Exam ED Exam Exam: General: Pleasant, no distress, interacting appropriately Head: Normacephalic, atraumatic ENT: oral mucosa moist, neck supple, no tracheal deviation Cardiovascular: regular rate, regular rhythm, no murmurs, rubbing, gallops Respiratory: CTAB, no wheeze, rales, rhonchi Gastrointestinal: Soft, non distended, non tender, non guarding Extremities: No limb pain or swelling, no calf tenderness Neurological: Awake and alert, no facial droop noted, see NIH score for further stroke evaluation. Skin: Warm and dry Psychiatric: Appropriate mood and thoughts Vital Signs: Vital Signs - 24 hr 05/01/25 15:16 05/01/25 16:01 05/01/25 17:22 Temperature 97 F 97 F Pulse Rate 80 76 77 Respiratory Rate 16 12 15 Blood Pressure 152/69 H 176/65 H 193/73 H Pulse Oximetry 97 99 96 Oxygen Delivery Method Room Air Room Air Room Air 05/01/25 18:31 05/01/25 19:29 Temperature 97.9 F 97.9 F Pulse Rate 83 84 Respiratory Rate 12 12 Blood Pressure 184/61 H 168/80 H Pulse Oximetry 97 97 Oxygen Delivery Method Room Air Room Air BMI result Body Mass Index 25.5 NIH Stroke Scale Internal: Initial- Upon Arrival Time: 16:46 Level of Consciousness: Alert Level of Consciousness Questions: Answers both questions correctly Level of Consciousness Commands: Performs both tasks correctly Best Gaze: Normal Visual: No visual loss Facial Palsy: Normal Motor Arm (Right): No drift Motor Arm (Left): Drift Motor Leg (Right): No drift Motor Leg (Left): No drift Limb Ataxia: Absent Sensory: Normal Best Language: No aphasia Dysarthia: Normal Extinction and Inattention: No abnormality Score: 1 Course Course Course Narrative: RME: 84 yold female with pmh of HTN presents to the ED for difficulty finding words. Last known well was 7pm last night. patient states no slurred speech, facial droop, loss of vision, fever, chills, or trauma. Patient to be brought back to the ED. Patient out the window for TPA Medications Administered Generic Name Dose Route Start Last Admin Trade Name Freq PRN Reason Stop Dose Admin Heparin Sodium (Porcine) 5,000 unit 05/01/25 21:00 05/02/25 05:15 Heparin Sodium,Porcine 5,000 Unit/Ml Vial SUBCUT 5,000 unit Q8H LISA Administration Sodium Chloride 3 ml 05/02/25 00:00 05/02/25 01:00 0.9 % Sodium Chloride Flush 3 Ml Syringe IVFLUSH 3 ml QSHIFT LISA Administration Discontinued Medications Generic Name Dose Route Start Last Admin Trade Name Zay PRN Reason Stop Dose Admin Aspirin 324 mg 05/01/25 16:31 05/01/25 17:13 Aspirin 81 Mg Tab.Chew PO 05/01/25 16:32 324 mg ONCE ONE Administration Sodium Chloride 1,000 mls @ 999 mls/hr 05/01/25 16:45 05/01/25 18:30 Ns IV 05/01/25 17:45 Infused .Q1H1M LISA Infusion Iohexol 100 ml 05/01/25 18:13 05/01/25 18:13 Iohexol 350 Mg/Ml 100 Ml Infus..Btl IV 05/01/25 18:14 85 ml ONCE ONE Administration Lorazepam 0.5 mg 05/01/25 20:07 05/01/25 20:22 Lorazepam 0.5 Mg Tablet PO 05/01/25 20:08 0.5 mg ONCE ONE Administration Ondansetron HCl 4 mg 05/01/25 16:33 05/01/25 17:13 Ondansetron Hcl 4 Mg/2 Ml Vial IVPUSH 05/01/25 16:34 4 mg ONCE ONE Administration Trazodone HCl 50 mg 05/01/25 20:07 05/01/25 20:22 Trazodone Hcl 50 Mg Tablet PO 05/01/25 20:08 50 mg ONCE ONE Administration Medical Decision Making Medical Decision Making [facility] Narrative: 84-year-old female history of hypertension presented hospital today for evaluation of trouble with speech. Patient is on exam does have a slight drift in the left upper extremity however no drift in the left lower extremity. 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 Did not appreciate any other neurological deficit on exam. Patient's speech appears to be clear on my evaluation. This may be a TIA. Patient is still within the time window of 24 hours for LVO. Patient will be stroke activated at this time. We will obtain a CTA head and neck. CT dry scan was obtained already prior to my assessment. This was negative for any signs of intracranial abnormality. UA was obtained. Patient does have slight leuk esterase. This may be UTI in nature. We will plan to give patient a bolus IV fluid here. Stroke alert has been activated. However given patient's last known normal. Patient is not TNK candidate. Patient's CTA of the head and neck was negative for any signs of LVO. Patient's CT abdomen and pelvis did not show any signs of obstruction or inflammatory changes. Incidental finding of diverticulosis however patient does have some lymph node swelling of the mesentery in the retroperitoneal area. We will plan to admit the patient to the hospital for MRI for definitive stroke rule out. Symptoms has improved. This may be a TIA. Differential Diagnosis Differential Diagnoses: The differential diagnosis associated with the presentation includes CVA, TIA, aphasia, dysarthria, UTI, dehydration Lab Data MDM Lab Attestation statement: I reviewed the patient's lab results. 05/02/25 04:05 05/02/25 04:05 Labs: Lab Results 05/01/25 05/01/25 05/01/25 Range/Units 15:31 15:33 16:02 WBC 8.7 (4.8-10.8) X10*3/uL RBC 4.57 (4.20-5.50) X10*6/uL Hgb 13.7 (12.0-16.0) g/dl Hct 39.0 (37.0-47.0) % MCV 85.3 (80.0-98.0) fL MCH 30.0 (27.0-33.0) pg MCHC 35.1 H (31.0-35.0) g/dl RDW 13.4 (11.0-16.0) % Plt Count 274 (160-400) X10*3/uL MPV 10.6 (9.4-12.3) fL Immature Gran % (Auto) 0.3 (0.0-0.4) % Neut % (Auto) 63.0 (45-73) % Lymph % (Auto) 21.7 (20-40) % [place] % (Auto) 11.5 H (2-11) % Eos % (Auto) 3.3 (0-4) % Baso % (Auto) 0.2 (0-2) % Lymph # (Auto) 1.9 (1.2-4.9) X10*3/uL [place] # (Auto) 1.0 (0.1-1.2) X10*3/uL Eos # (Auto) 0.3 (0.0-0.4) X10*3/uL Baso # (Auto) 0.0 (0.0-0.2) X10*3/uL Abs Immat Gran (auto) 0.03 (0.00-0.03) X10*3/uL Absolute Neuts (auto) 5.5 (2.0-8.3) x10*3/uL Absolute Nucleated RBC 0.000 (0.0-0.012) X10*3/uL Nucleated RBC % (auto) 0.0 (0.0-0.2) /100WBC Sodium 136 (135-145) mmol/L Potassium 3.6 (3.3-5.1) mmol/L Chloride 101 (96-108) mmol/L Carbon Dioxide 28 (22-29) mmol/L Anion Gap 11 L (12-20) BUN 17 H (9-16) mg/dL Creatinine 0.87 (0.5-1.4) mg/dL Estim Creat Clear Calc 42.2 Estimated GFR > 60 Random Glucose 151 H (60-115) mg/dL Calcium 9.6 (8.4-10.2) mg/dL Total Bilirubin 0.3 (0.0-1.0) mg/dL AST 27 (5-31) U/L ALT 15 (0-31) U/L Alkaline Phosphatase 74 (39-117) U/L Troponin I High Sens < 2.7 (<3.5-17.0) ng/L NT-Pro-B Natriuret Pep 308.5 H (<300) pg/mL Total Protein 7.2 (6.5-8.0) g/dL Albumin 4.3 (3.5-5.0) g/dL Urine Color Yellow Urine Appearance Clear Urine pH 7.0 (5.0-9.0) Ur Specific [place] <= 1.005 (1.005-1.025) Urine Protein Negative (Neg-Trace) mg/dL Urine Glucose (UA) Negative (Negative) mg/dL Urine Ketones Negative (Negative) mg/dL Urine Blood Trace H (Negative) Urine Nitrite Negative (Negative) Ur Leukocyte Esterase Small (1+) H (Negative) Urine RBC 6-10 H (0-2) /HPF Urine WBC 0-5 (0-5) /HPF Ur Squamous Epith Cells 6-10 (0-2) /HPF Urine Bacteria None Seen (None Seen) Hyaline Casts 0-2 (0-2) /LPF Independent Interpretation I performed an independent interpretation of an: CT Scan Radiology Impression Discussion of test interpretation with radiology: I have reviewed the radiologist's reading. Chronic Conditions Patient?s care impacted by: Hypertension Critical Care Time Critical Care Time Critical Care Time: Yes Total Critical Care Time: 36 Attestation: Time is exclusive of separately billable procedures. Time includes: direct patient care, patient reassessment, coordination of patient care, interpretation of data (laboratory data, pulse oximetry, arterial blood gases and chest xrays), review of patient's medical records, medical consultation and documentation of patient care. Procedures excluded from critical care time: central intravenous line placement and electrocardiography. Discharge Plan Discharge Clinical Impression: Difficulty with speech, Brain TIA Patient Disposition: Admitted As Inpatient
[2025-05-01 15:37] LABS: MANUAL DIFF FLAG NO
[2025-05-01 15:38] LABS: Hematocrit 39.0 % (37.0-47.0); Hemoglobin 13.7 g/dl (12.0-16.0); Imm Gran Abs Auto 0.03 X10*3/uL (0.00-0.03); Imm Gran Pct Auto 0.3 % (0.0-0.4); Lymphocytes Absolute Auto 1.9 X10*3/uL (1.2-4.9); Mean Corpuscular HGB Conc 35.1 g/dl (31.0-35.0); Mean Corpuscular Hemoglobin 30.0 pg (27.0-33.0); Mean Corpuscular Volume 85.3 fL (80.0-98.0); NRBC Abs Auto 0.000 X10*3/uL (0.0-0.012); NRBC Pct Auto 0.0 /100WBC (0.0-0.2); Platelet Count 274 X10*3/uL (160-400); Red Blood Count 4.57 X10*6/uL (4.20-5.50); White Blood Count 8.7 X10*3/uL (4.8-10.8)
[2025-05-01 15:57] LABS: Alanine Aminotransferase 15 U/L (0-31); Albumin Level 4.3 g/dL (3.5-5.0); Alkaline Phosphatase 74 U/L (39-117); Anion Gap 11 (12-20); Aspartate Amino Transferase 27 U/L (5-31); Blood Urea Nitrogen 17 mg/dL (9-16); Calcium 9.6 mg/dL (8.4-10.2); Carbon Dioxide 28 mmol/L (22-29); Chloride 101 mmol/L (96-108); Creatinine Clr Calc Pharmacy 42.2; Estimated Glomerular Filt Rate > 60; Potassium 3.6 mmol/L (3.3-5.1); Sodium 136 mmol/L (135-145); Total Protein 7.2 g/dL (6.5-8.0)
[2025-05-01 16:01] VITALS: BP 176/65; PULSE 76; RESP 12; O2SAT 99
[2025-05-01 16:05] LABS: Troponin-I High Sensitivity < 2.7 ng/L (<3.5-17.0)
[2025-05-01 16:05] LABS: NT Pro B Type Natriuretic Pept 308.5 pg/mL (<300)
[2025-05-01 16:12] LABS: Appearance Urine Clear; Glucose Urine UA Negative (Negative); PH 7.0 (5.0-9.0); Specific Gravity - Urine <= 1.005 (1.005-1.025); UMIC TRIGGER UACC YES
[2025-05-01 16:23] LABS: UACC Culture Trigger YES
[2025-05-01 17:22] VITALS: BP 193/73; PULSE 77; RESP 15; TEMP 36.1; O2SAT 96
--- NOTE | 2025-05-01 18:06 | PC.NURSE ---
nursing swallow screen completed- pass
[2025-05-01] MEDS: iohexoL 350 MG/ML 100 ML INFUS..BTL IV (18:13)
--- NOTE | 2025-05-01 18:15 | MHC.EDTECH ---
purewick was placed on pt with excellent tolerance
[2025-05-01 18:31] VITALS: BP 184/61; PULSE 83; RESP 12; TEMP 36.6; O2SAT 97
--- OUTSIDE RECORDS SUMMARY | 2025-05-01 18:35 | XMS_ITS | Encounter Summary ---
Author Organization [facility] Address [address] [place] [address] Care Team Providers Care Catia Designer Name Role Phone Froilan Chao MD Primary Care Provider [phone] Encounter Details Date Type Department Care Team (Late st Contact Info) Description 11/11/2024 Lab Requisition [facility] - Main Lab [address] [place] [phone] Az[place]a [place], [place] [address] [facility] [address] [place] [address] Urinary tract infection, site not specified Social [...] care for your loved ones. For example, director child development center or elderly care for an older adult? [...] Date Recorded What is your living situation? Unrecognized valu e 09/06/2024 Comments No Sex and Gender Information Value Date Recorded Sex Assigned at Not on file Legal Sex Female 3:55 PM EST Gender Identity Not on file Sexual Orientation Not on file documented as of this encounter Plan of Treatment Upcoming Encounters Date Type Department Care Team (Late st Contact Info) Description 07/25/2025 1:30 PM EST Office Visit Adult Medicine [address] [phone] Desi Schreiber PA [address] [place] [address] documented as of this encounter Procedures Procedure Name Priority Date/Time Associated Diagnosis Comments BACTERIAL IDENTIFICATION AND SUSCEPTIBILITY, AEROBIC Routine 11/10/2024 12:00 AM EDT Urinary tract infection, site not specified documented in this encounter Results * (ABNORMAL) Bacterial identification and susceptibility, aerobic (11/10/2024 12:00 AM EDT) Culture, Bacterial ID and Sensitivity Escherichia coli(A) JUDY 11/12/2024 9:44 AM EDT [facility] Other Urinary bladder structure [...] LAB MICROBIOLOGY - GENERAL ORDERABLES Final Result [facility] [address] [place] [address], documented in this encounter Visit Diagnoses Diagnosis Urinary tract infection, site not specified documented in this encounter Additional Health Concerns Assessment Noted Time PHQ-9 Depression Total Score: 6 09/06/19 25 12:02 PM EST documented as of this encounter Care Teams Catia Designer Relationship Specialty Start Date End Date Froilan Chao MD [address] [place] [phone] PCP - General 10/31/09 documented as of this encounter
--- OUTSIDE RECORDS SUMMARY | 2025-05-01 18:35 | XMS_ITS ---
Author Name [facility] Organization Unknown Care Team Organization Name Specialty Phone Email Start Date End Da te [facility] ACO 03/15/[address] [facility] ZACH VENEGAS Primary Care 01/02/[address] [facility] Jennifer Rodas Primary Care 06/03/2022 03/14/20 24
--- OUTSIDE RECORDS SUMMARY | 2025-05-01 18:35 | XMS_ITS | Encounter Summary ---
Author Organization [facility] Address [address] [place] [address] Care Team Providers Care Orchard Sprayer Name Role Phone Froilan Chao MD Primary Care Provider [phone] Encounter Details Date Type Department Care Team (Late Contact Info) Description 06/14/2024 Lab Requisition [facility] - Main Lab [address] [facility] [place] [phone] Haleigh Carrillo, [place] [address] [address] Urinary tract infection, site not specified Social [...] Department Care Team (Late Contact Info) Description 07/25/2025 1:30 PM EST Office Visit Adult Medicine [address] [phone] Desi Schreiber PA [address] [place], [place] documented as of this encounter Procedures Procedure Name Priority Date/Time Associated Diagnosis Comments BACTERIAL IDENTIFICATION AND SUSCEPTIBILITY, AEROBIC Routine 06/13/2024 12:00 AM EST Urinary tract infection, site not specified documented in this encounter Results * (ABNORMAL) Bacterial identification and susceptibility, aerobic (06/13/2024 12:00 AM EST) Culture, Bacterial ID and Sensitivity Escherichia coli(A) JUDY 06/15/2024 7:41 AM EST [facility] Comment: This is an edited result. [...] MICROBIOLOGY - GENERAL ORDER IVA Final Result [facility] [address] [place] [address], documented in this encounter Visit Diagnoses Diagnosis Urinary tract infection, site not specified documented in this encounter Care Teams Orchard Sprayer Relationship Specialty Start Date End Date Froilan Chao MD [address] [place] [phone] PCP - General 10/31/09 documented as of this encounter
--- OUTSIDE RECORDS SUMMARY | 2025-05-01 18:35 | XMS_ITS | Encounter Summary ---
Author Organization [facility] Address [address] [place] [address] Care Team Providers Care Investigative Shopper Name Role Phone Froilan Chao MD Primary Care Provider [phone] Encounter Details Date Type Department Care Team (Late st Contact Info) Description 12/16/[address] [facility] - Main Lab [address] [facility] [place] [phone] Lachelle El MD [address] [address] Hypocitraturia Social History Tobacco Use Types Packs/Day Years [...] care for your loved ones. For example, child and family counselor or elderly care for an older adult? [...] 1:30 PM EST Office Visit Adult Medicine [address] [phone] Desi Schreiber PA [address] [place] [phone] documented as of this encounter Procedures Procedure Name Priority Date/Time Associated Diagnosis Comments CULTURE URINE Routine 12/16/2024 12:00 AM EDT Hypocitraturia documented in this encounter Results * (ABNORMAL) Culture urine (12/16/2024 12:00 AM EDT) Culture, Urine >100,000 CFU/mL Escherichia coli(A) JUDY 12/18/2024 11:31 AM EDT [facility] Urine Urine specimen from urinary conduit / Unknown 12/16/2024 12/16/2024 7:06 PM EDT Narrative Organism Antibiotic Method Susceptibility Escherichia [...] coli Trimethoprim/Sulfamethoxazole JUDY <=20 ug/ml: Susceptible us Lachelle El MD LAB MICROBIOLOGY - G ENERAL ORDERABLES Final Result [facility] [address] [place] [address], documented in this encounter Visit Diagnoses Diagnosis Hypocitraturia Other nonspecific finding on examination of urine documented in this encounter Additional Health Concerns Assessment Noted Time PHQ-9 Depression Total Score: 6 09/06/19 25 12:02 PM EST documented as of this encounter Care Teams Investigative Shopper Relationship Specialty Start Date End Date Froilan Chao MD [address] [place] [phone] PCP - General 10/31/09 documented as of this encounter
--- OUTSIDE RECORDS SUMMARY | 2025-05-01 18:35 | XMS_ITS | Clinical Summary ---
Author Organization [address] [facility] Address [address] [place] [address] Phone Care Team Providers Care Belt Back Operator Name Role Phone Froilan Chao MD Primary Care Provider Allergies Active Allergy Reactions Criticality Noted Date Comments Simvastatin Other Low 11/21/2010 Caused her to retain fluid Vwrdzoh-Zes-Fjn Reductase Inhibitors Constipation 06/27/2024 Medications LORazepam (ATIVAN) 0.5 mg tablet Take 1 tablet (0.5 mg total) by mouth if needed. Active timolol (TIMOPTIC) 0.5 % ophthalmic solution Administer 1 drop into both eyes 1 (one) time each day. Active traZODone (DESYREL) 50 mg tablet Take 1.5 tablets (75 mg total) by mouth at bedtime as needed. Active omega 0-yac-eas-fish oil (Fish OiL) 1,000 (120-180) mg capsule Take by mouth. 6 Active magnesium 250 mg tablet Take 1 tablet by mouth 1 (one) time each day. Active multivit with minerals/lutein (MULTIVITAMIN 50 PLUS ORAL) Take by mouth. 6 Active diclofenac (VOLTAREN) 1 % topical gel APPLY 2 G TOPICALLY TWICE A DAY 100 g 1 5 Active hydroCHLOROthia zide (HYDRODIURIL) 25 mg tablet Take 1 tablet (25 mg total) by mouth 1 (one) time each day. 90 tablet 1 5 09/01/19 26 Active carboxymethylce llulose 1 % ophthalmic solution 1 drop if needed. Active ascorbic acid (VITAMIN C) 500 mg tablet Take 1 tablet (500 mg total) by mouth 1 (one) time each day. Active Active Problems Problem Noted Date Diagnosed Date Vulvar intraepithelial neoplasia (ALTON) grade 3 1 08/28/2023 Primary hypertension 03/10/2024 Depression, major, recurrent , moderate ([facility] V24, [facility] V28) 11/28/2014 Overweight 06/06/2011 Osteopenia 05/23/2011 High cholesterol 12/11/2009 Encounters Date Type Department Care Team Description 05/01/2025 Telephone Adult Medicine [address] [phone] Froilan Chao MD 03/21/2025 3:45 PM EDT Office Visit Adult Medicine [address] [phone] Froilan Chao MD Primary hypertension (Primary Dx) from Last 3 Months Immunizations Immunization Administration Dates Next Due Influenza, Unspecified 04/27/2020 [...] care for your loved ones. For example, childcare center administrator or elderly care for an older adult? [...] Sign Reading Time Taken Comments Blood Pressure 162/84 03/21/2025 3:30 PM EDT provider to recheck bp Pulse 76 03/21/2025 3:30 PM EDT Temperature 36.5 C (97.7 F) 03/21/2025 3:30 PM EDT Respiratory Rate 14 03/21/2025 3:30 PM EDT Oxygen Saturation 98% 03/21/2025 3:3 0 PM EDT Inhaled Oxygen Concentration - - Weight 66.7 kg (147 lb) 03/21/2025 3:30 PM EDT Height 160 cm (5' 3 ) 03/21/2025 3:30 PM EDT Body Mass Index 26.04 03/21/2025 3:30 PM EDT Plan of Treatment Upcoming Encounters Date Type Department Care Team (Late st Contact Info) Description 07/25/2025 1:30 PM EST Office Visit Adult Medicine [address] [phone] Desi Schreiber PA [address] [place] [address] Health Maintenance Due Date Last Done Comments RSV Immunization Adult Patients (1 - 1-dose 75+ series) 2013 Zoster Vaccines (3 of 3) 07/25/2020 05/30/2020, 05/0 07/2007 DTaP,Tdap,and Td Vaccines (2 - Td or Tdap) 11/21/2020 11/21/2010 Medicare Annual Wellness Visit 03/10/2025 03/10/2024 COVID-19 Vaccine ( season) 2025 05/30/2024, 05/13/2023, 05/14/2022, Additional history exists Influenza Vaccine (#1) 2025 04/27/2020, 2019 Social Influencers of Health Screening 09/06/2025 09/06/2024 Falls Risk Assessment 03/21/2026 03/21/2025, 024 Hypertension/CHF/CAD Annual BMP Blood Test 03/21/2026 03/21/2025, 09/13/2024, 03/10/2024, Additional history exists Cholesterol Screening (Lipid Panel) 09/21/2028 09/21/2023 Osteoporosis Screening (Bone Density Screening) 11/05/2030 11/05/2020 Pneumococcal Vaccine: 50+ Years Completed 04/30/2017, 05/24/2014 Depression Screening Completed 03/14/2025, 03/10/20 24 HIB Vaccines Aged Out No longer eligi [...] Procedure Name Priority Date/Time Associated Diagnosis Comments BASIC METABOLIC PANEL Routine 03/21/2025 4:41 PM EDT Primary hypertension HM DEPRESSION SCREENING Routine 03/10/2024 LIPID PANEL Routine 09/21/2023 FALLS RISK ASSESSMENT Routine 09/15/2023 DXA BONE DENSITY STUDY 1+ SITS AXIAL SKEL Routine 11/05/2020 1:34 PM EDT Other specified disorders of bone density and structure, unspecified thigh from Last 3 Months or Most Recently Relevant to Health Maintenance Results * (ABNORMAL) Basic metabolic panel (03/21/2025 4:41 PM EDT) [facility] Sodium 135 133 - 145 mmol/L LAB CHEMISTRY METHOD 03/21/2025 7:24 PM [facility] Potassium 4.0 3.5 - 5.5 mmol/L LAB CHEMISTRY METHOD 03/21/2025 7:24 PM [facility] Chloride 98 96 - 110 mmol/L LAB CHEMISTRY METHOD 03/21/2025 7:24 PM [facility] CO2 31 21 - 32 mmol/L LAB CHEMISTRY METHOD 03/21/2025 7:24 PM [facility] Anion Gap 6 3 - 11 LAB CHEMISTRY METHOD 03/21/2025 7:24 PM [facility] Glucose 103(H) 70 - 100 mg/dL LAB CHEMISTRY METHOD 03/21/2025 7:24 PM [facility] BUN 15 5 - 25 mg/dL LAB CHEMISTRY METHOD 03/21/2025 7:24 PM [facility] Creatinine 0.89 0.50 - 1.10 mg/dL LAB CHEMISTRY METHOD 03/21/2025 7:24 PM [facility] eGFR 63 >=60 mL/min/1. 73m2 LAB CHEMISTRY METHOD 03/21/2025 7:24 PM [facility] Comment:Calculation based on the Chronic Kidney Disease Epidemiology Collaboration (CKD-EPI) equation refit without adjustment for race. BUN/Creatinine Ratio 16.9 LAB CHEMISTRY METHOD 03/21/2025 7:24 PM EDT [facility] Calcium 9.5 8.5 - 10.5 mg/dL LAB CHEMISTRY METHOD 03/21/2025 7:24 PM EDT [facility] Blood Venous blood specimen / Unknown Venipuncture / Unknown 03/21/2025 4:41 PM EDT 03/21/2025 4:41 PM EDT Froilan Chao MD LAB BLOOD ORDERABLES Final Resu lt [facility] [address] [place] [address], * Depression Screening (03/10/2024) [facility] Depression Screening abstracted Historical Provider HEALTH MAINTENANCE Final Result * (ABNORMAL) Lipid panel (09/21/2023) [facility] LDL/HDL Ratio 4 0 - 4 Triglycerides 169(A) 0 - 150 mg/dL Cholesterol 204(A) 0 - 200 mg/dL HDL 46 >=40 mg/dL LDL Cholesterol 125(A) 0 - 100 mg/dL Blood Venous blood specimen / Unknown Result [facility] LAB BLOOD ORDERABLES Emilie l Result * Falls Risk Assessment (09/15/2023) [facility] Falls Risk Assessment abstracted Historical Provider HEALTH MAINTENANCE Final Result * DXA BONE DENSITY STUDY 1+ SITS AXIAL SKEL (11/05/2020 1:34 PM EDT) Anatomical Region Laterality Modality Bone Densitometr y 05/30/2020 1:25 PM EST Narrative 11/05/2020 6:42 PM EDT BONE DENSITY Lumbar Spine T-score is +0.6 [...] compared to most recent bone density examination Confidence level is +/-95%. Impression: Based on the World Health Organization criteria, Lucho Schmid should be classified as having osteopenia. This patient has a 25% risk of major osteoporotic fracture and a 15% risk of hip fracture over the next 10 years. (World Health Organization Fracture Risk Assessment) The [facility] Department of Internal Medicine recommends using National [...] Based on the World Health Organization criteria, Lucho Schmid should beclassified as having osteopenia. This patient has a 25% risk of majorosteoporotic fracture and a 15% risk of hip fracture over the next 10years. (World Health Organization Fracture Risk Assessment) The [facility] Department of Internal Medicine recommendsusing National Osteoporosis [...] Recently Relevant to Health Maintenance Insurance MEDICARE [facility] Care Teams Belt Back Operator Relationship Specialty Start Date End Date Froilan Chao MD [address] [place] [phone] PCP - General 10/31/09
--- OUTSIDE RECORDS SUMMARY | 2025-05-01 18:35 | XMS_ITS | Encounter Summary ---
Author Organization [facility] Address [address] [place] [address] Care Team Providers Care Naturopathic Physician Name Role Phone Froilan Chao MD Primary Care Provider [phone] Reason for Visit * Reason Onset Date Comments light headed 05/01/2025 Unable to speak 05/01/2025 Encounter Details Date Type Department Care Team (Late st Contact Info) Description 05/01/2025 Telephone Adult Medicine [address] [phone] Froilan Chao MD [address] [place] [address] Social History Tobacco Use Types Packs/Day Years [...] for your loved ones. For example, child custody evaluator or elderly care for an older adult? [...] as of this encounter Progress Notes * Christian Wynn RN - 05/01/2025 1:50 PM EDT Called and spoke with pt. Pt sts last night was on phone with daughter and was hasn't trouble getting words out. Rested drank water and resolved after a little while. Sts woke up okay today but progressively feeling worse as the day goes. Pt c/o nausea and lightheadedness no headache. Pt also c/o chills no fever or cold sx. Pt advised to go to er for evaluation. * Bob Chun - 05/01/2025 1:38 PM EDT Patient call requires triage: Symptoms patient is presenting: Patient states last night when daughter called she has a very hard time talking but she felt alright , states that she has water , states that she is feeling very nauseous or light headed How long has patient had these symptoms?: one day For ALL patients calling to schedule any appointment (routine, sick visit, follow up, consult, etc.) in the outpatient setting please ask the following questions: Do you have fever of higher than 101, sore throat with difficulty swallowing or severe shortness ofbreath? no If YES to any of these above symptoms, send a message to triage and do not book. Red dot. If no, an audio or video visit should be booked. Have you had close contact with someone with Coronavirus in the last 14 days? no Have you traveled abroad? no Have you traveled recently to another state outside of [place], [place], [place], [place], [place], [place], [place]? no o If yes, did you quarantine for 14 days or have a negative covid test? no If yes to any of the above, patient is not to be scheduled in office until after 14 day quarantine or negative covid test. If pain or injury related was it due to an accident at work or from a motor vehicle accident? If yes, date of accident/Injury: No If yes, gather 3rd green party insurance information Third Alliance Party Information: not applicable PCP: Froilan Chao MD Payor: MEDICARE / Plan: MEDICARE PART A & B / Product Type: Medicare / documented in this encounter Plan of Treatment Upcoming Encounters Date Type Department Care Team (Late st Contact Info) Description 07/25/2025 1:30 PM EST Office Visit Adult Medicine [address] [phone] Desi Schreiber PA [address], [place] documented as of this encounter Visit Diagnoses Not on filedocumented in this encounter Additional Health Concerns Assessment Noted Time PHQ-9 Depression Total Score: 6 09/06/19 25 12:02 PM EST documented as of this encounter Care Teams Naturopathic Physician Relationship Specialty Start Date End Date Froilan Chao MD [address] [place] [address] PCP - General 10/31/09 documented as of this encounter
--- NOTE | 2025-05-01 19:04 | PC.NURSE ---
do all operator made aware by LUC Culp from triage that pt was going to be a stroke alert, this RN clarified if we were officially calling the alert, PA did not want to make the decision, this RN then asked Susy Chau to assess pt in triage, pt moved into ED24, at time of triage MD Chau stated no stroke alert to be called, Dry scan of head ordered and completed. MD bah picked pt up, and then called stroke alert aprox [phone] this RN discussed with MD that Dr. Chau had not called the stroke alert, MD Bah stated he just wanted the CTA at this time, he did not want POC/INR. Primary nurses aware
[2025-05-01 19:29] VITALS: BP 168/80; PULSE 84; RESP 12; TEMP 36.6; O2SAT 97
[2025-05-01 20:23] VITALS: BP 184/70; PULSE 68; RESP 12; TEMP 36.6; O2SAT 96
--- NOTE | 2025-05-01 20:29 | PM.IMHP ---
History of Present Illness Date of Service: 05/01/25 Chief Complaint: Word-finding difficulty 84-year-old female with a past medical history of HTN, HLD presented to the hospital with a chief complaint of word-finding difficulty. Patient reports that she started feel like she is not able to find words since yesterday evening around 18:00; got better early in the morning but again she had similar symptoms today hence presented to the ER for further evaluation. Denies any swallowing difficulty denies any change in speech Denies any numbness tingling or focal weakness Denies any chest pain or palpitations. Denies any lightheadedness or dizziness. At the time of my interview reported her symptoms resolved. Patient denies any fever chills cough or sputum production. Denies any GI or symptoms. Review of all other systems is negative except mentioned above ER course: Per ER team, patient exam was normal all; patient out of the tPA window; CT head and CT angio head and neck showed no acute findings; given aspirin. [facility] Social History Household Members: Family Housing: [facility] Do you presently have visiting nurse or other home services: No Patient Tobacco Use Status: Never used Tobacco Advance Directives Date on File: 05/02/25 service: No Meds Allergies Allergy/AdvReac Type Severity Reaction Status Date / Time simvastatin Allergy Unknown Unknown Verified 05/01/25 15:20 Active Medications: Current Medications Acetaminophen (Acetaminophen 325 Mg Tablet) 650 mg PO Q6H PRN PRN Reason: Pain, Mild 1-3,fever,headache Aspirin (Aspirin Enteric Coated 81 Mg Tablet.Dr) 81 mg PO DAILY [facility] Atorvastatin Calcium (Atorvastatin Calcium 80 Mg Tablet) 80 mg PO DAILY [facility] Calcium Carbonate (Calcium Carbonate 750 Mg Tab.Chew) 750 mg PO Q4H PRN PRN Reason: Heartburn Enoxaparin Sodium (Enoxaparin Sodium 40 Mg/0.4 Ml Syringe) 40 mg SUBCUT Q24H [facility] Magnesium Hydroxide (Milk Of Magnesia 30 Ml Oral.Susp) 30 ml PO DAILY PRN PRN Reason: Constipation Melatonin (Melatonin 3 Mg Tablet) 6 mg PO BEDTIME PRN PRN Reason: Insomnia Sodium Chloride (0.9 % Sodium Chloride Flush 3 Ml Syringe) 3 ml IVFLUSH QSHIFT [facility] Home Medications ?Medication ?Instructions ?Recorded ?Confirmed ?Last Taken ?Type diclofenac sodium 1 % topical gel 2 g topical QID PRN Pain 05/01/25 05/01/25 Unknown History hydrochlorothiazide 25 mg tablet 25 mg PO DAILY 05/01/25 05/01/25 05/01/25 History peg [id number] 1 1 drp ophthalmic (eye) DAILY PRN 05/01/25 05/01/25 Unknown History %-0.2 %-0.2 % eye drops (Dry Eye Dry Eye(S) Relief) timolol maleate 0.5 % eye drops 1 drp ophthalmic (eye) DAILY 05/01/25 05/01/25 05/01/25 History trazodone 50 mg tablet 50 mg PO BEDTIME PRN sleep 05/01/25 05/01/25 Unknown History Physical Exam Vital Signs and Narrative: Vital Signs: Last Vital Signs Temp 97.9 F 05/01/25 20:23 Pulse 68 05/01/25 20:23 Resp 12 05/01/25 20:23 BP 184/70 H 05/01/25 20:23 Pulse Ox 96 05/01/25 20:23 O2 Del Method Room Air 05/01/25 20:23 BMI result Body Mass Index 25.5 Gen: Appears be in no acute distress HEENT: NCAT, Moist mucosa. Pulmonary: Vesicular breath sounds, fair air entry CVS: Normal S1-S2 Abdomen: BS+, Soft, Nontender Extremities: Warm well perfused Neuro: Alert and awake. Results Labs 05/02/25 04:05 05/02/25 04:05 Labs: Laboratory Results - last 24 hr 05/01/25 05/01/25 05/01/25 15:31 15:33 16:02 MCV 85.3 MCH 30.0 MCHC 35.1 H RDW 13.4 Plt Count 274 MPV 10.6 Immature Gran % (Auto) 0.3 Neut % (Auto) 63.0 Lymph % (Auto) 21.7 Preble % (Auto) 11.5 H Eos % (Auto) 3.3 Baso % (Auto) 0.2 Lymph # (Auto) 1.9 Preble # (Auto) 1.0 Eos # (Auto) 0.3 Baso # (Auto) 0.0 Abs Immat Gran (auto) 0.03 Absolute Neuts (auto) 5.5 Absolute Nucleated RBC 0.000 Nucleated RBC % (auto) 0.0 Anion Gap 11 L Estim Creat Clear Calc 42.2 Estimated GFR > 60 Random Glucose 151 H Calcium 9.6 Total Bilirubin 0.3 AST 27 ALT 15 Alkaline Phosphatase 74 Troponin I High Sens < 2.7 NT-Pro-B Natriuret Pep 308.5 H Total Protein 7.2 Albumin 4.3 Urine Color Yellow Urine Appearance Clear Urine pH 7.0 Ur Specific [place] <= 1.005 Urine Protein Negative Urine Glucose (UA) Negative Urine Ketones Negative Urine Blood Trace H Urine Nitrite Negative Ur Leukocyte Esterase Small (1+) H Urine RBC 6-10 H Urine WBC 0-5 Ur Squamous Epith Cells 6-10 Urine Bacteria None Seen Hyaline Casts 0-2 Imaging Radiologist's Impressions: Impressions Head CT 05/01/25 15:33 IMPRESSION: No acute intracranial abnormality. Chronic white matter changes likely related to small vessel disease. Electronically signed by: Guanaco Harvey MD 05/01/2025 03:52 PM EDT RP Assessment and Plan (1) Brain TIA: Status: Acute Plan 84-year-old female with a past medical history of HTN, HLD presented to the hospital with a chief complaint of word-finding difficulty. Word-finding difficulty: Symptoms currently resolved. CT head and CT angio head and neck showed no acute findings MRI brain, echocardiogram ordered Continue aspirin, statin Neurology follow-up in a.m. PT/OT/FORTUNE TELLER evaluation: Hypertension: Permissive hypertension for now. DVT prophylaxis: Subcu heparin Code status: Full code Quality Stroke Does the patient have a stroke diagnosis?: No VTE Prior VTE?: No VTE Risk Level:: Medical - moderate - high VTE Device Contraindication: Treatment Not Indicated VTE Drug Contraindication: N/A - Med Ordered
--- NOTE | 2025-05-01 20:48 | PHA.MEDREC ---
Addendum entered by Emanuel Avery, PharmKrystal 05/01/25 21:35: MED REC CHECKED BY [facility] Original Note: Pharmacy Consult ? Medication Reconciliation Pharmacy has completed the medication reconciliation. Patient was able to name all of her medications. Patient confirmed Trazadone 50 mg at bedtime even though claims has 75 mg ( 1.5 tabs) at bedtime. patient had all of her morning medications today.
[2025-05-02] MEDS: 0.9 % Sodium Chloride Flush 3 ML SYRINGE IVFLUSH ×3 (01:00→16:00)
[2025-05-02 04:46] LABS: MANUAL DIFF FLAG NO
[2025-05-02 04:51] LABS: Hematocrit 39.1 % (37.0-47.0); Hemoglobin 13.3 g/dl (12.0-16.0); Imm Gran Abs Auto 0.02 X10*3/uL (0.00-0.03); Imm Gran Pct Auto 0.3 % (0.0-0.4); Lymphocytes Absolute Auto 2.1 X10*3/uL (1.2-4.9); Mean Corpuscular HGB Conc 34.0 g/dl (31.0-35.0); Mean Corpuscular Hemoglobin 29.4 pg (27.0-33.0); Mean Corpuscular Volume 86.3 fL (80.0-98.0); NRBC Abs Auto 0.000 X10*3/uL (0.0-0.012); NRBC Pct Auto 0.0 /100WBC (0.0-0.2); Platelet Count 257 X10*3/uL (160-400); Red Blood Count 4.53 X10*6/uL (4.20-5.50); White Blood Count 7.2 X10*3/uL (4.8-10.8)
[2025-05-02 05:11] LABS: Alanine Aminotransferase 12 U/L (0-31); Albumin Level 3.8 g/dL (3.5-5.0); Alkaline Phosphatase 68 U/L (39-117); Anion Gap 13 (12-20); Aspartate Amino Transferase 26 U/L (5-31); Blood Urea Nitrogen 13 mg/dL (9-16); Calcium 9.3 mg/dL (8.4-10.2); Carbon Dioxide 26 mmol/L (22-29); Chloride 107 mmol/L (96-108); Creatinine Clr Calc Pharmacy 44.2; Estimated Glomerular Filt Rate > 60; Potassium 3.6 mmol/L (3.3-5.1); Sodium 142 mmol/L (135-145); Total Protein 6.5 g/dL (6.5-8.0)
[2025-05-02 05:12] LABS: Cholesterol 197 mg/dL (<200); HDL Cholesterol 37 mg/dL (>40); Triglycerides 119 mg/dL (<150)
[2025-05-02 05:14] VITALS: BP 150/57; PULSE 66; RESP 12; TEMP 36.7; O2SAT 96
--- NOTE | 2025-05-02 07:00 | CA_ITS ---
Transthoracic Echocardiogram Patient (Last, First, Middle): Pia Schmid, Gender: F Date of : 1940 Age: 84 Procedure Date: 05/02/2025 Procedure Type: Transthoracic Echocardiogram Location: ER Height: 160.02 cm Weight: 65.32 kg BSA: 1.68 m2 Heart Rate: 68 bpm BP: 135 / 57 mmHg Summer Analyst: DAO Referring MD: Jorge Villa MD Psychopaedic Nurse: Dmitri Liang MD Symptoms: TIA Study Quality: Adequate ECG Rhythm: Sinus Conclusions: - 1. Normal LV ejection fraction 55-60% with impaired relaxation filling pattern 2. Mild calcific changes noted in the aortic and mitral valve with normal cardiac valvular Doppler 3. Normal RV systolic pressure 4. No pericardial effusion Findings Left Ventricle Normal left ventricular size, thickness, and systolic function. The visually estimated ejection fraction is between 55-60%. Spectral Doppler is indicative of an impaired relaxation filling pattern. Right Ventricle Normal right ventricular cavity size and systolic function. Atria Both atria are normal in size. Interatrial shunt cannot be excluded. Aortic Valve There is mild calcification of the aortic valve. There is no aortic valve stenosis. There is no aortic valve regurgitation. Mitral Valve Normal mitral valve structure and function. There is mild mitral annular calcification. There is trace mitral valve regurgitation. There is no mitral valve stenosis. Pulmonic Valve The pulmonic valve was not well visualized. Tricuspid Valve Likely normal tricuspid valve structure and function. There is trace tricuspid valve regurgitation. The right ventricular systolic pressure is normal. The right ventricular systolic pressure is 23 mmHg. Normal right atrial pressure. There is no evidence of pulmonary hypertension. Great Vessels All visible segments of the aorta are normal in size. The pulmonary artery was not well visualized. Venous The inferior vena cava is normal in size and collapses greater than 50% with inspiration. Pericardium/Pleural There is no evidence of pericardial effusion. Prior Study Comparison No prior study available for comparison. Measurements 2D Linear Measurements IVSd: 1.03 0.6-0.9/0.6-1.0 cm LVIDd: 3.95 3.9-5.3/4.2-5.9 cm LVIDd Index: 2.35 2.4-3.2/2.2-3.1 cm/m2 LVIDs: 1.71 2.0-3.6 cm LVPWd: 0.98 0.7-1.1 cm LA Diam: 2.60 2.7-3.8/3.0-4.0 cm LAIDs Index: 1.55 1.5-2.3 cm/m2 LV Mass: 156.19 67-162/88-224 g LV Mass Index: 92.97 43-95/49-115 g/m2 LVOT Diam: 1.90 3.0+(-)1.3 cm 2D Systolic Function EF 4C: 56.30 >55% EF 2C: 56.00 >55% EF BiP: 56.80 >55% Mitral Valve MV Pk E: 0.63 MV PK A: 0.65 MV Decel Time: 230.00 E/A: 1.00 E'Lateral: 6.85 E'Medial: 5.98 E/E' Med: 10.50 E/E' Lat: 9.20 PHT: 67.00 MVA PHT: 3.28 Decel Drew: 2.73 Aortic Valve AoV Pk Ras: 1.29 AoV Mn Ras: 0.94 AoV VTI: 0.26 AoV Pk Grad: 7.00 Aov Mn Grad: 4.00 FELICE Cont.VTI: 2.04 LVOT LVOT Pk Ras: 0.84 LVOT Mn Ras: 0.60 LVOT VTI: 0.19 LVOT Pk Grad: 3.00 LVOT Mn Grad: 2.00 LVOT Diam: 1.90 LVOT Area: 2.84 Diastolic Function MV Pk E: 0.63 MV Pk A: 0.65 E/A: 1.00 E'Medial: 5.98 E/E' Med: 10.50 E' Laterial: 6.85 E/E' Lat: 9.20 Right Ventricle TAPSE (mm): 18.30 TVS' Ras: 8.70 Tricuspid Valve TR Pk Ras: 2.23 TR Pk Grad: 20.00 RA Press: 3.00 RVSP: 23.00 Great Vessels Aorta Sinus of Valsalva: 2.60 2.0-3.5 cm Ao Asc: 3.10 2.1-3.4 cm Pulmonary Veins Pulm Vein S/D 1.10 Pulmonary Valve PV Pk Ras: 0.88 Peak PV Grad: 3.00 NV Pk Ras: 0.97 Updated in Other Vendor System with Status of Final Dmitri Liang MD electronically signed on 05/02/2025 12:20:45 PM with status of Final
[2025-05-02 08:28] VITALS: BP 135/57; PULSE 80; RESP 16; TEMP 36.4; O2SAT 93
[2025-05-02 08:30] VITALS: BP 135/57; PULSE 78; RESP 13; TEMP 36.4; O2SAT 93
--- NOTE | 2025-05-02 11:08 | PC.NURSE ---
Pt currently refusing atorvastatin dose due to previous simvastatin allergy, and pt states she does not take this medication @ home. Pt also requesting home dose of hydrochlorothiazide. BP 135/57. Dr. Estrada aware, awaiting response.
[2025-05-02 11:13] VITALS: BP 154/69; PULSE 71; RESP 12; TEMP 36.6; O2SAT 97
--- NOTE | 2025-05-02 11:15 | PC.NURSE ---
Pt BP 154/69, Dr. Estrada aware. No further orders @ this time.
[2025-05-02] MEDS: Aspirin Enteric Coated 81 MG TABLET.DR PO (11:16)
--- NOTE | 2025-05-02 12:27 | P.CNNE_ITS ---
History of Present Illness Data of Consult Service Date: 05/02/25 Primary Care Provider: Froilan Chao III, MD [facility] Reason for consult: ? TIA with transient speech disturbance. 84-year-old female with a past medical history of HTN, HLD, overactive bladder with frequent UTI dizziness ocular migraine and anxiety disorder who is followed in our office for these symptoms. Previous workup has shown T2 white matter hyperintensities in the subcortical and deep white matter distribution on MRI. No previous history of stroke. She presented to the hospital with a chief complaint of word-finding difficulty. Patient reports that she started feel like she is not able to find words since yesterday evening around 18:00; got better early in the morning but again she had similar symptoms today hence presented to the ER for further evaluation. Denies any swallowing difficulty, any numbness tingling or focal weakness, any chest pain or palpitations, any lightheadedness or dizziness. CT and CTA of head and neck negative. MRI : No acute infarction, mass effect, or edema.. Age-related cerebral and cerebellar volume loss, mild to moderate changes of small vessel ischemia. [facility] Social History Social History Household Members: Family [facility] Do you presently have visiting nurse or other home services: No Patient Tobacco Use Status: Never used Tobacco Advance Directives: Yes Advance Directives Information Provided: No Advance Directives on File: No Advance Directives Date on File: 05/02/25 Do you have a plan to hurt others: No Plan Recently lost weight without trying: No Eating poorly because of decreased appetite: No Nutrition Risks: No Nutritional Risk Patient : No : No Poor oral hygiene: No service: No Meds Allergies Allergy/AdvReac Type Severity Reaction Status Date / Time simvastatin Allergy Unknown Unknown Verified 05/01/25 15:20 Active Medications: Current Medications Acetaminophen (Acetaminophen 325 Mg Tablet) 650 mg PO Q6H PRN PRN Reason: Pain, Mild 1-3,fever,headache Aspirin (Aspirin Enteric Coated 81 Mg Tablet.) 81 mg PO DAILY [facility] Last Admin: 05/02/25 11:16 Dose: 81 mg Atorvastatin Calcium (Atorvastatin Calcium 80 Mg Tablet) 80 mg PO DAILY [facility] Last Admin: 05/02/25 11:13 Dose: Not Given Calcium Carbonate (Calcium Carbonate 750 Mg Tab.Chew) 750 mg PO Q4H PRN PRN Reason: Heartburn Heparin Sodium (Porcine) (Heparin Sodium,Porcine 5,000 Unit/Ml Vial) 5,000 unit SUBCUT Q8H [facility] Last Admin: 05/02/25 05:15 Dose: 5,000 unit Magnesium Hydroxide (Milk Of Magnesia 30 Ml Oral.Susp) 30 ml PO DAILY PRN PRN Reason: Constipation Melatonin (Melatonin 3 Mg Tablet) 6 mg PO BEDTIME PRN PRN Reason: Insomnia Sodium Chloride (0.9 % Sodium Chloride Flush 3 Ml Syringe) 3 ml IVFLUSH QSHIFT [facility] Last Admin: 05/02/25 11:11 Dose: 3 ml Home Medications ?Medication ?Instructions ?Recorded ?Confirmed ?Last Taken ?Type diclofenac sodium 1 % topical gel 2 g topical QID PRN Pain 05/01/25 05/01/25 Unknown History hydrochlorothiazide 25 mg tablet 25 mg PO DAILY 05/01/25 05/01/25 History peg [id number] 1 1 drp ophthalmic (eye) DAILY PRN 05/01/25 05/01/25 Unknown History %-0.2 %-0.2 % eye drops (Dry Eye Dry Eye(S) Relief) timolol maleate 0.5 % eye drops 1 drp ophthalmic (eye) DAILY 05/01/25 05/01/25 05/01/25 History trazodone 50 mg tablet 50 mg PO BEDTIME PRN sleep 1 05/01/25 Unknown History Physical Exam 2 Vital Signs: Vital Signs: Last Vital Signs Temp 97.8 F 05/02/25 11:13 Pulse 71 05/02/25 11:13 Resp 12 05/02/25 11:13 BP 154/69 H 05/02/25 11:13 Pulse Ox 97 05/02/25 11:13 O2 Del Method Room Air 05/02/25 11:13 BMI result Body Mass Index 25.5 Neuro: Other: Normal nonfocal neurological examination. No speech or language problems. Results Labs 05/02/25 04:05 05/02/25 04:05 Labs: Short CBC 05/01/25 05/02/25 Range/Units 15:31 04:05 WBC 8.7 7.2 (4.8-10.8) X10*3/uL Hgb 13.7 13.3 (12.0-16.0) g/dl Hct 39.0 39.1 (37.0-47.0) % Plt Count 274 257 (160-400) X10*3/uL BMP 05/01/25 05/02/25 15:31 04:05 Sodium 136 142 Potassium 3.6 3.6 Chloride 101 107 Carbon Dioxide 28 26 BUN 17 H 13 Creatinine 0.87 0.83 Calcium 9.6 9.3 Liver Function 05/01/25 05/02/25 Range/Units 15:31 04:05 Total Bilirubin 0.3 0.4 (0.0-1.0) mg/dL AST 27 26 (5-31) U/L ALT 15 12 (0-31) U/L Alkaline Phosphatase 74 68 (39-117) U/L Albumin 4.3 3.8 (3.5-5.0) g/dL Urine 05/01/25 Range/Units 16:02 Urine Color Yellow Urine Appearance Clear Urine pH 7.0 (5.0-9.0) Ur Specific [place] <= 1.005 (1.005-1.025) Urine Protein Negative (Neg-Trace) mg/dL Urine Glucose (UA) Negative (Negative) mg/dL Microbiology Microbiology Results: Microbiology 05/01/25 16:24 Urine clean catch - Clean Catch Midstream Urine Culture - Preliminary Culture too young to evaluate. Assessment and Plan (1) Difficulty with speech: Status: Acute Transient difficulty with speech possible TIA. Vascular workup is negative. Patient is known to have microvascular white matter changes from previous MRIs which are essentially unchanged. CTA of head and neck is negative. Would add aspirin 81 mg a day. No further neurological intervention is necessary. Procedures Date of Service Date of Service: 05/02/25
--- NOTE | 2025-05-02 14:06 | MHC.CM.PN ---
Jenny 05/02/25, Pt. lives with family, PCP is confirmed, Dr Chao, Pt. has HCP naming Katey Patterson, no copy on file. Pt. does not have home care services or use DME. Pt. can arrange a ride home at [place], DCP: home, self care. CM to follow for DC needs.
--- NOTE | 2025-05-02 14:51 | MHC.SP.ADU ---
Referring provider: Dr. Smith Reason for Referral: Speech/Language assessment due to word finding difficulty Type of Treatment: 90128 Assessment of Aphasia Date of Plan of Treatment: 05/02/25 Onset of Symptoms/Illness: 05/01/25 Date Treatment Started: 05/02/25 Medical Diagnosis: Transient difficulty with speech possible TIA Brain MRI:1. No evidence of intracranial hemorrhage, acute infarction, mass effect, or edema. 2. Age-related cerebral and cerebellar volume loss, mild to moderate changes of small vessel ischemia. Primary Speech Language Diagnosis: Transient word finding difficulty/anomia History Patient is an 84 year old woman who reported to this examiner that she was having difficulty communicating with her daughter yesterday, struggling to find words, and they decided she needed to go to the ED to be assessed. She reported the day before she had been doing gayathri work at a table outdoors in the hot sun for a number of hours without hydration. She was doing better today, but still felt at times having lapses of word finding. She reported that she has seen Dr. Kingston for neurology due to a history of vertigo ( dizziness, trouble with balance ). Medical History: HTN, HLD, overactive bladder with frequent UTI dizziness ocular migraine and anxiety disorder Medication List: See chart Recent Hospitalizations: No Respiratory Needs: Room Air Patient Orientation: Alert & Oriented x 4 Social History: Employment Status: Retired Current Living Situation: Lives in a private residence with family Past Speech Language Therapy: None Swallowing History: Dysphagia Specific: Within Functional Limits Comments: Pre-evaluation Dietary Consistencies: Regular Pre-eval Liquid Intake: Thin Pre-eval Medication Intake: Whole with Liquid Reported Speech, Language, Cognition difficulties: Speaking Assessment Speech Production: Clinical Impression: Intact Observations: Speech is clear and articulate. Occasionally hesitancies in connected speech due to word finding, but behavior presents as WFL> Informal Voice Assessment: Voice Loudness: Normal Voice Nasal Resonance: Normal Voice Oral Resonance: Normal Voice Phonatory-based Quality: Normal Voice Pitch: Normal Clinical Impression: Intact Tests of Speech & Lang Adults: BNT Clinical Impression: Intact Observations: Patient was given the short form of the [place] Naming Test, and assessed informally in conversation. On the BNT she named 14/15 items readily. On her single error, she had tip of tongue behavior, did not respond to contextual cues, but then responded to the cue it begins with O (octopus). In conversation, she had word finding difficulty at one point when attempting to describe the condition she sees a neurologist for (she described it as balance issues and dizziness, Vertigo was suggested), but was otherwise fluent in her speech and communication. Word finding difficulty as presented is mild, may be secondary to aging v. new onset neurological event. Impressions and Recommendations Summary: Patient presents today with mild word finding issues, that is baseline v. new onset due to neurological event. Patient reported that she also has mild memory issues at times and at baseline she has word finding issues, but It comes to me after a few minutes. She related this behavior to her advancing age. Patient does not need direct speech therapy on an acute level, it was recommended to patient the if she continues to have concerns about word finding and memory that she request an outpatient assessment from her PCP. Recommendation for Speech Therapy: NA:Typical Evaluation Patient Education: Completed: Yes Patient/Caregiver Education: Described Results of Evaluation Patient expressed understanding of evaluation Patient agrees with goals and treatment plan Comments/Barriers to Learning: Natural Gas Technician Clinican/Clinical Fellow: No Supervisory Statement: N/A Speech Language Pathologist: Cece Banerjee M.A., CCC-GROUP DIRECTOR
--- NOTE | 2025-05-02 16:08 | P.DS_ITS ---
DS: Providers Provider Date of Service: 05/02/25 Date of admission: 05/01/25 20:16 Date of discharge: 05/02/25 Primary care physician: Froilan Chao III, MD Consults: 05/01/25 20:18 Consult to Neurology Routine Consulting Provider: Efrem Munguia Reason for consultation: TIA Attending physician on discharge: Sumeet Estrada Discharging clinician: Sumeet Estrada DS: Diagnosis Discharge Diagnosis (1) Difficulty with speech: Status: Acute DS: Summary Hospital Course Hospital Course: HPI:84-year-old female with a past medical history of HTN, HLD presented to the hospital with a chief complaint of word-finding difficulty. Patient reports that she started feel like she is not able to find words since yesterday evening around 18:00; got better early in the morning but again she had similar symptoms today hence presented to the ER for further evaluation. Denies any swallowing difficulty denies any change in speech Denies any numbness tingling or focal weakness Denies any chest pain or palpitations. Denies any lightheadedness or dizziness. At the time of my interview reported her symptoms resolved. Patient denies any fever chills cough or sputum production. Denies any GI or symptoms. Review of all other systems is negative except mentioned above ER course: Per ER team, patient exam was normal all; patient out of the tPA window; CT head and CT angio head and neck showed no acute findings; given aspirin. Hospital course: Patient came to the hospital because of fighting difficu lty:Transient difficulty with speech possible TIA. Seen by Neurology: Vascular workup is negative. Patient is known to have microvascular white matter changes from previous MRIs which are essentially unchanged. CTA of head and neck is negative. Echo also seems fine: 1. Normal LV ejection fraction 55-60% with impaired relaxation filling pattern 2. Mild calcific changes noted in the aortic and mitral valve with normal cardiac valvular Doppler .3. Normal RV systolic pressure .4. No pericardial effusion Neuro recommended to add aspirin 81 mg a day. No further neurological intervention is necessary. Patient has pyuria/bacteriuria: Denies any urinary complaints, avoid antibiotics. Plan: Continue aspirin 81 mg daily Monitor lipid level outpatient, low-cholesterol diet Above management discussed with the patient detail length she understand and in agreement with the above plan, time spent 45 minute, all questions answered. Time Attestation Total time managing care of this patient today: 45 mintues. Discharge Coordination Time (in mins): 45 min Quality: Safe Use of Opioids Does Pt have an Active Cancer Diagnosis on the Problem List?: No Quality: Stroke Does the patient have a stroke diagnosis?: No Physical Exam Exam: Exam: Appearance: Alert.? Oriented X3.? cvs: rrr, [id number] . res: clear to auscultation ,no rhonchii or wheezing abd: no rebound or guarding ,nt, bs present. ext pulses present , no cyanosis ,. neuro: axo3 , nonfocal. Vital Signs: Vital Signs: Last Vital Signs Temp 97.8 F 05/02/25 11:13 Pulse 71 05/02/25 11:13 Resp 12 05/02/25 11:13 BP 154/69 H 05/02/25 11:13 Pulse Ox 97 05/02/25 11:13 O2 Del Method Room Air 05/02/25 11:13 BMI result Body Mass Index 25.5 DS: Data Data Completed and Pending Labs on day of discharge: Laboratory Results - last 24 hr 05/01/25 05/02/25 16:02 04:05 WBC 7.2 RBC 4.53 Hgb 13.3 Hct 39.1 MCV 86.3 MCH 29.4 MCHC 34.0 RDW 13.3 Plt Count 257 MPV 10.8 Immature Gran % (Auto) 0.3 Neut % (Auto) 51.0 Lymph % (Auto) 28.8 [place] % (Auto) 15.5 H Eos % (Auto) 4.3 H Baso % (Auto) 0.1 Lymph # (Auto) 2.1 [place] # (Auto) 1.1 Eos # (Auto) 0.3 Baso # (Auto) 0.0 Abs Immat Gran (auto) 0.02 Absolute Neuts (auto) 3.7 Absolute Nucleated RBC 0.000 Nucleated RBC % (auto) 0.0 Sodium 142 Potassium 3.6 Chloride 107 Carbon Dioxide 26 Anion Gap 13 BUN 13 Creatinine 0.83 Estim Creat Clear Calc 44.2 Estimated GFR > 60 Random Glucose 101 Calcium 9.3 Total Bilirubin 0.4 AST 26 ALT 12 Alkaline Phosphatase 68 Total Protein 6.5 Albumin 3.8 Triglycerides 119 Cholesterol 197 LDL Cholesterol, Calc 137 H HDL Cholesterol 37 L Urine Color Yellow Urine Appearance Clear Urine pH 7.0 Ur Specific [place] <= 1.005 Urine Protein Negative Urine Glucose (UA) Negative Urine Ketones Negative Urine Blood Trace H Urine Nitrite Negative Ur Leukocyte Esterase Small (1+) H Urine RBC 6-10 H Urine WBC 0-5 Ur Squamous Epith Cells 6-10 Urine Bacteria None Seen Hyaline Casts 0-2 Preliminary micro results at discharge 05/01/25 16:24 Urine Culture - Preliminary Urine clean catch - Clean Catch Midstream Culture too young to evaluate. Imaging Chest x-ray: Radiologist's impression: ITS Impressions Head CT 05/01/25 15:33 IMPRESSION: No acute intracranial abnormality. Chronic white matter changes likely related to small vessel disease. Brain MRI 05/02/25 12:30 IMPRESSION: 1. No evidence of intracranial hemorrhage, acute infarction, mass effect, or edema. 2. Age-related cerebral and cerebellar volume loss, mild to moderate changes of small vessel ischemia. echo: Conclusions: - 1. Normal LV ejection fraction 55-60% with impaired relaxation filling pattern 2. Mild calcific changes noted in the aortic and mitral valve with normal cardiac valvular Doppler 3. Normal RV systolic pressure 4. No pericardial effusion Findings Left Ventricle Normal left ventricular size, thickness, and systolic function. The visually estimated ejection fraction is between 55-60%. Spectral Doppler is indicative of an impaired relaxation filling pattern. Right Ventricle Normal right ventricular cavity size and systolic function. Atria Both atria are normal in size. Interatrial shunt cannot be excluded. Aortic Valve There is mild calcification of the aortic valve. There is no aortic valve stenosis. There is no aortic valve regurgitation. Mitral Valve Normal mitral valve structure and function. There is mild mitral annular calcification. There is trace mitral valve regurgitation. There is no mitral valve stenosis. Pulmonic Valve The pulmonic valve was not well visualized. Tricuspid Valve Likely normal tricuspid valve structure and function. There is trace tricuspid valve regurgitation. The right ventricular systolic pressure is normal. The right ventricular systolic pressure is 23 mmHg. Normal right atrial pressure. There is no evidence of pulmonary hypertension. Great Vessels All visible segments of the aorta are normal in size. The pulmonary artery was not well visualized. Venous The inferior vena cava is normal in size and collapses greater than 50% with inspiration. Pericardium/Pleural There is no evidence of pericardial effusion. Prior Study Comparison No prior study available for comparison. Discharge Plan Discharge Anticipated Discharge Date/Time: 05/02/25 15:59 Patient Disposition: Home, Self-Care Discharge Diagnosis: possible tia Referrals: Froilan Chao III, MD [Primary Care Provider, Medical] - 1 Week Discharge Medications: New aspirin 81 mg Tablet,Delayed Release (Dr/Ec) 81 mg PO DAILY Qty: 90 0RF omeprazole 20 mg capsule,delayed release(DR/EC) 20 mg PO DAILY Qty: 90 0RF Continued meloxicam 7.5 mg tablet 7.5 mg PO DAILY 30 Days Qty: 30 5RF lorazepam 0.5 mg tablet 0.5 mg PO BEDTIME PRN (Reason: anxiety) 30 Days Qty: 30 2RF hydrochlorothiazide 25 mg tablet 25 mg PO DAILY timolol maleate 0.5 % drops 1 drp ophthalmic (eye) DAILY Rx Instructions: both eyes Dry Eye Relief 1-0.2-0.2 % Drops 1 drp OPHTHALMIC (EYE) DAILY PRN (Reason: Dry Eye(S)) diclofenac sodium 1 % Gel 2 g TOPICAL QID PRN (Reason: Pain) Rx Instructions: apply to shoulder and neck trazodone 50 mg tablet 50 mg PO BEDTIME PRN (Reason: sleep) Discharge Orders: Discharge Order (Routine); Ordered 05/02/25 Ordered By: Sumeet Estrada Diet: Low fat, low cholesterol Activity on Discharge: As tolerated Stand Alone Forms: Patient Portal Discharge page Print Language: Telugu Other Ambulatory Orders: Lipid Panel (Routine) Timeframe: 1 Week Facility: [facility] - Location: Laboratory Ordered By: Sumeet Estrada Care Plan Goals: as below. Health Concerns: Aspirin 81 mg daily added.low cholestrol diet lipid panel outpatient. Follow-up with PCP . PT recommended outpatient services as per PCP. Plan of Treatment: As above. Assessment: As above.
[2025-05-02 16:52] VITALS: BP 172/79; PULSE 75; RESP 14; TEMP 36.5; O2SAT 94
[2025-05-02 18:41] VITALS: BP 169/81; PULSE 82; RESP 15; TEMP 36.5; O2SAT 95
== END 2025-05-03 10:46 | disposition home or self-care (01) ==
LOC: HO.ED 20:30 → HO.EDOVER 20:31
PROVIDERS: Physician Assistant; Admitting Provider Hospitalist; Emergency Provider Student in an Organized Health Care Education/Training Program; PCP Internal Medicine; Visit Provider Internal Medicine
DX: R47.01 Aphasia (principal); R47.9 Unspecified speech disturbances; I10 Essential (primary) hypertension; E78.5 Hyperlipidemia, unspecified; R11.0 Nausea; N32.81 Overactive bladder; Z13.89 Encounter for screening for other disorder; Z87.440 Personal history of urinary (tract) infections; Z79.899 Other long term (current) drug therapy
CPT/HCPCS: 36415; 70450; 70496; 70498; 70551; 74177; 80053; 80061; 81001; 83880; 84484; 85025; 87086; 93005; 93306; 96361; 96372; 96374; 97161; 97165; 99221; 99285; J1644; J2405; Q9967

== ENCOUNTER → 2025-05-01 15:18 | Outpatient (BNV) | payer MEDICARE, SELFPAY | PROVIDERS: Admitting Provider Hospitalist; Emergency Provider Student in an Organized Health Care Education/Training Program; PCP Internal Medicine; Visit Provider Internal Medicine Cardiovascular Disease | DX: I49.1 Atrial premature depolarization (principal) | CPT/HCPCS: 93010 ==

== ENCOUNTER → 2025-05-01 15:23 | Outpatient (BNV) | payer MEDICARE, SELFPAY | PROVIDERS: Emergency Provider Student in an Organized Health Care Education/Training Program; PCP Internal Medicine; Visit Provider Radiology Diagnostic Radiology | DX: K57.30 Diverticulosis of large intestine without perforation or abscess without bleeding (principal); I63.9 Cerebral infarction, unspecified | CPT/HCPCS: 70496; 70498; 74177 ==

== ENCOUNTER 2025-05-01 20:16 | Outpatient (BNV) | payer MEDICARE, SELFPAY | END 2025-05-02 07:00 | PROVIDERS: Admitting Provider Hospitalist; Emergency Provider Student in an Organized Health Care Education/Training Program; PCP Internal Medicine; Visit Provider Internal Medicine Cardiovascular Disease | DX: I34.81 Nonrheumatic mitral (valve) annulus calcification (principal) | CPT/HCPCS: 93306 ==

== ENCOUNTER 2025-05-01 20:16 | Outpatient (BNV) | payer MEDICARE, SELFPAY | END 2025-05-02 12:30 | PROVIDERS: Admitting Provider Hospitalist; Emergency Provider Student in an Organized Health Care Education/Training Program; PCP Internal Medicine; Visit Provider Radiology Diagnostic Radiology | DX: I67.82 Cerebral ischemia (principal); G31.1 Senile degeneration of brain, not elsewhere classified; R47.89 Other speech disturbances | CPT/HCPCS: 70551 ==

== ENCOUNTER → 2025-05-01 20:16 | Outpatient (BNV) | payer MEDICARE, SELFPAY | PROVIDERS: Admitting Provider Hospitalist; Emergency Provider Student in an Organized Health Care Education/Training Program; PCP Internal Medicine; Visit Provider Internal Medicine | DX: R47.9 Unspecified speech disturbances (principal); G45.9 Transient cerebral ischemic attack, unspecified | CPT/HCPCS: 99221; 99239 ==

== ENCOUNTER → 2025-05-01 20:16 | Outpatient (BNV) | payer MEDICARE, SELFPAY | PROVIDERS: Admitting Provider Hospitalist; Emergency Provider Student in an Organized Health Care Education/Training Program; PCP Internal Medicine; Visit Provider Psychiatry & Neurology Neurology | DX: R47.9 Unspecified speech disturbances (principal) | CPT/HCPCS: 99222 ==

== ENCOUNTER 2025-06-12 13:15 | Outpatient (AMB) | payer MEDICARE, SELFPAY ==
--- NOTE | 2025-06-12 13:24 | A.OFFVIS_ITS ---
Intake Visit Reasons: 6month f/u Allergies simvastatin Allergy (Unknown, Verified 06/06/25 15:05) Unknown Medication List - Last Reconciled 06/12/25 by Abbie Huddleston CNP amlodipine 2.5 mg PO DAILY aspirin 81 mg PO DAILY diclofenac sodium 1% 2 grams topical QID PRN hydrochlorothiazide 25 mg PO DAILY lorazepam 0.5 mg PO BEDTIME PRN 30 days meloxicam 7.5 mg PO DAILY 30 days omeprazole 20 mg PO DAILY peg [id number] 1-0.2-0.2 % (Dry Eye Relief) 1 drp ophthalmic (eye) DAILY PRN rosuvastatin 5 mg PO DAILY timolol maleate 0.5% 1 drp ophthalmic (eye) DAILY trazodone 50 mg PO BEDTIME PRN HPI Comments Details: [place] [facility] [place] speech difficulty and issue with expressive speech that was noticed when she was talking with her daughter that lasted about 10 minutes or so. No further episodes. Dizziness has been okay. Balance was off and unsteady at times, but no falls. 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 Sleep was okay, taking trazodone 50mg at night. No recent ocular migraines, may have had one in the last 6 months. Tinnitus was about the same, notices more when quiet and has not been significantly bothersome, R > L. Mood was okay, some more anxiety after leaving hospital. She had form for handicap placard to be completed. She was prescribed cyclobenzaprine for neck pain which she took a few times, but preferred not to take as she takes trazodone and lorazepam at bedtime. She was also prescribed some cream which helped. She had most pain in neck when laying down at night trying to sleep.?Back pain at times. Doing housework. Moving bit slower, things take longer to do, less patience. Has daughter and younger grandson who has declared he is transgender. She worries a lot. Daughter has mental health issues. Has word finding difficulties. Occasional visual aura of migraine without BONE. Triggered by stress. MRI shows T2 hyperintense white matter lesions, mostly in a subcortical and deep white matter distribution, but not really periventricular. There approximately 21 lesions and both sides of the brain anteriorly as well as posteriorly. The patient has no history of stroke. At times she feels tired and sometimes is burning in her eyes. There are occasional periods where her depression gets worse. Daughter and grandson live with her. [facility] Medical History (Updated 06/12/25 @ 13:42 by Abbie Huddleston CNP) Cervical disc disease Anxiety Dizziness Social History Household Members: [facility] Do you presently have visiting nurse or other home services: No Patient Tobacco Use Status: Never used Tobacco Advance Directives Date on File: 05/02/25 service: No Review of Systems Const Denies chills, Denies daytime sleepiness, Reports difficulty sleeping, Denies fatigue, Denies fever(s), Denies frequent falls, Denies headache(s), Denies increased appetite, Denies poor appetite, Denies snoring, Denies weakness, Denies weight gain and Denies weight loss Eyes Denies loss of vision ENT Denies vertigo, Reports dizziness, Denies headache(s) and Reports neck pain Card Denies chest pain at rest, Denies chest pain with activity, Denies syncope, Denies leg edema, Denies palpitations, Denies dyspnea and Denies dyspnea on exertion Resp Denies cough, Denies dyspnea, Denies dyspnea on exertion and Denies snoring GI Denies abdominal pain, Denies constipation, Denies heartburn, Denies diarrhea and Denies nausea Denies urinary frequency, Denies urinary incontinence and Denies urinary urgency Musc Denies abnormal gait, Denies back pain, Denies myalgias, Denies arthralgias, Reports neck pain, Denies numbness and Denies tingling Neuro Denies abnormal gait, Denies vertigo, Reports dizziness, Denies syncope, Denies frequent falls, Denies headache(s), Denies lack of coordination, Denies loss of vision, Denies memory loss, Denies numbness, Denies Other visual disturbances, Denies restless legs, Denies seizure-like activity, Denies tingling, Denies paresthesias, Denies tremor(s) and Denies weakness Psych Reports anxiety, Reports depression, Denies auditory hallucinations, Denies memory loss and Denies visual hallucinations Endo Denies fatigue and Denies palpitations Physical Exam Const Other: General Appearance:? normal, in no acute distress. Heart:? S1, S2 normal, no murmurs. Lungs:? clear anteriorly and posteriorly. Musculoskeletal:? normal. Extremities:? no edema. Psych:? alert, oriented, cognitive function intact, cooperative with exam. Neuro Other: Abnormal Neurological Findings:?none.? Mental Status: alert and oriented X 3. Normal attention, orientation, memory, and affect. Cranial Nerves: Pupils are equal, round, and reactive to light. External ocular muscles are intact. Visual [place] are full, no ptosis. Face is symmetrical, no facial weakness or droop. Facial sensations are normal. Tongue protrudes in midline. Palate elevates symmetrically. Shoulder shrugging is normal Motor Examination: Normal muscle tone, bulk and strength. No atrophy or fasciculations. No drift of the extended upper extremities. DTR 2+. Plantars are flexor. Sensory Exam: Normal light touch, temperature, pinprick, vibration, and joint- position sensations. Rhomberg sign is absent. Coordination: No ataxia. No titubation. Gait Exam: Within normal limits. Cerebellar Signs: Iaiddr-cf-argz is okay. Extrapyramidal System: No tremor, rigidity with normal facial expressions. No bradykinesia. No bradyphrenia. Normal arm swing and posture. No propulsion or retropulsion. Speech: Normal. Results Reviewed Results Reviewed: [address] [address] [address] Scan Report Signed Patient: Pia Schmid MR#: [id number] : 1940 Acct:[id number] Age/Sex: 84 / F ADM Date: 05/01/25 Loc: HO.ED Attending Dr: Ordering Physician: Christ Chowdary Date of Service: 05/01/25 Procedure(s): CT head/brain wo IV con Accession Number(s): [id number] cc: Christ Chowdary; Froilan Chao III, MD~ Report Number: [id number]: Total DLP = 635.00 mGy-cm Reason for Exam: difficult speech EXAMINATION: CT HEAD WITHOUT CONTRAST CLINICAL INFORMATION: Speech difficulty COMPARISON: None available. TECHNIQUE: Contiguous axial imaging was performed from the skull base to vertex without intravenous administration of contrast. This CT examination was performed using dose optimization techniques as appropriate, variously including the following: *Automated exposure control *Adjustment of mA and/or kV according to patient size (this includes techniques or standardized protocols for targeted exams where dose is matched to indication/reason for exam; i.e. extremities or head) *Use of iterative reconstruction technique FINDINGS: There is no acute ischemic change. Periventricular white matter hypodensities are evident and most pronounced in the frontal lobes There is no intracranial hemorrhage. There is no mass-effect or midline shift. Basal cisterns and ventricles are within normal limits for age/cerebral volume. Orbits are symmetrical and unremarkable. Paranasal sinuses and mastoid air cells are pneumatized. There are no bony abnormalities. CT/CT head/brain wo IV con IMPRESSION: No acute intracranial abnormality. Chronic white matter changes likely related to small vessel disease. Electronically signed by: Guanaco Harvey MD 05/01/2025 03:52 PM EDT RP Dictated By: Guanaco Harvey MD Signed By: <Electronically signed by Guanaco Harvey MD in OV> 05/01/[address] [place] [address] CT Scan Report Signed Patient: Pia Schmid MR#: [id number] : 1940 Acct:[id number] Age/Sex: 84 / F ADM Date: 05/01/25 Loc: .ED Attending Dr: Ordering Physician: Catia Kong DO Date of Service: 05/01/25 Procedure(s): CT angio head neck STROKE Accession Number(s): [id number] cc: Catia Kong DO; Froilan Chao III, MD~ Report Number: [id number]: Total DLP = 0.00 mGy-cm Reason for Exam: cva CLINICAL HISTORY: cva CTA HEAD WITH CONTRAST, 3D POSTPROCESSING. Comparison: CT/SR - CT HEAD WITHOUT IV CONTRAST - 05/01/25 15:33 EDT Findings: Vertebrobasilar system: Patent. Cerebellar arteries: Patent. Intracranial carotid arteries: No occlusion or significant stenosis. Posterior cerebral arteries: Patent. No occlusion or aneurysm. Anterior cerebral arteries: Patent. No occlusion or aneurysm. Middle cerebral arteries: Patent. No occlusion or aneurysm. No enhancing intracranial mass lesion. Dural venous sinuses are patent. Please see separate report for CT head/brain. Impression: 1. Patent CTA head. This document has been electronically signed by: Amy Pickard DO on 05/01/2025 18:43:43 Dictated By: Amy Pickard MD Signed By: <Electronically signed by Amy Pickard MD in OV> 05/01/25 [address] [address] Magnetic Resonance Report Signed Patient: Pia Schmid MR#: [id number] : 1940 Acct:[id number] Age/Sex: 84 / F ADM Date: 05/01/25 Loc: [facility]: Sumeet Estrada MD Ordering Physician: Jorge Villa MD Date of Service: 05/02/25 Procedure(s): MR head/brain wo con Accession Number(s): [id number] cc: Froilan Chao III, MD; Jorge Villa MD~ Reason for Exam: TIA EXAMINATION: MR BRAIN WITHOUT CONTRAST CLINICAL INFORMATION: TIA COMPARISON: No prior MRI. CTA head and CT angiography head 05/01/2025. TECHNIQUE: MRI of the brain was obtained using routine sequences without contrast. Examination performed on a 1.5 Diana Siemens high-field unit. FINDINGS: There is no diffusion restriction. There is no intracranial hemorrhage, acute infarction, mass effect, or edema. Ventricles, sulci, and cisterns are somewhat diffusely prominent in keeping with age-related cerebral and cerebellar volume loss. No shift of midline. No abnormal hemosiderin deposition is identified. There are a scattered punctate and minimally confluent foci of white matter T2 hyperintensity in the periventricular, subcortical, and hemispheric deep white matter. These foci are nonspecific but statistically most likely relate to small vessel ischemic changes. Midline structures appear normally formed. The pituitary gland appears normal. Posterior fossa structures appear normal. Cerebellar tonsils are appropriately located. Major flow voids are preserved within the skull base. The globes and orbital contents demonstrate no abnormalities. There are bilateral lens replacements. Paranasal sinuses are clear bilaterally. The mastoids and tympanic cavities are normally aerated. Extracranial soft tissues demonstrate no abnormalities. No suspicious bone marrow changes are evident. Atlantoaxial joint demonstrates moderate degenerative changes. MR/MR head/brain wo con IMPRESSION: 1. No evidence of intracranial hemorrhage, acute infarction, mass effect, or edema. 2. Age-related cerebral and cerebellar volume loss, mild to moderate changes of small vessel ischemia. Electronically signed by: Lavell Garcia MD 05/02/2025 01:18 PM EDT RP Dictated By: Lavell Garcia MD Signed By: <Electronically signed by Lavell Garcia MD in OV> 05/02/25 1318 Assessment & Plan Assessment & Plan (1) Dizziness: Code(s): R42 - Dizziness and giddiness Category: Medical Plan: Continue lorazepam 0.5mg 1 tablet at bedtime as needed #30 for 30 days. Form for handicap placard completed and returned to patient. (2) Insomnia: Code(s): G47.00 - Insomnia, unspecified Category: Medical Qualifiers: Insomnia type: unspecified Qualified Code(s): G47.00 - Insomnia, unspecified Plan: Continue trazodone 50mg 1 tablet at bedtime as needed for sleep #90 for 90 days. (3) Anxiety: Code(s): F41.9 - Anxiety disorder, unspecified Category: Medical (4) Cervical disc disease: Code(s): M50.90 - Cervical disc disorder, unspecified, unspecified cervical region Category: Medical Plan: Continue meloxicam 7.5mg 1 tablet daily as needed for pain. (5) Ocular migraine: Code(s): G43.109 - Migraine with aura, not intractable, without status migrainosus Category: Medical Plan: No recent episodes. (6) Brain TIA: Comment: Possible TIA 05/01/2025 Code(s): G45.9 - Transient cerebral ischemic attack, unspecified Category: Medical Plan: MRI and CT results reviewed. Continue statin and low dose aspirin. Control blood pressure. (7) Cerebral microvascular disease: Code(s): I67.89 - Other cerebrovascular disease Category: Medical Plan: Continue statin and low dose aspirin. Control blood pressure. Plan . Medications: Changed From trazodone 75 mg (1.5 x 50 mg) PO BEDTIME PRN 135 tabs 0RF for insomnia To trazodone 50 mg PO BEDTIME PRN Refilled lorazepam 0.5 mg PO BEDTIME PRN 30 tabs 5RF anxiety 30 days Coding Level of Care Code Est Pt Level 4 (81892) Diagnoses Dizziness R42 Insomnia, unspecified type G47.00 Insomnia type: unspecified Anxiety F41.9 Cervical disc disease M50.90 Ocular migraine G43.109 Brain TIA G45.9 Cerebral microvascular disease I67.89
== END 2025-06-12 13:53 | disposition home or self-care (01) ==
LOC: HO.HSM 13:16
PROVIDERS: PCP Internal Medicine; Visit Provider Registered Nurse
DX: R42 Dizziness and giddiness (principal); G47.00 Insomnia, unspecified; F41.9 Anxiety disorder, unspecified; M50.90 Cervical disc disorder, unspecified, unspecified cervical region; G43.109 Migraine with aura, not intractable, without status migrainosus; G45.9 Transient cerebral ischemic attack, unspecified; I67.89 Other cerebrovascular disease
CPT/HCPCS: 99214

== ENCOUNTER → 2025-06-12 13:15 | Outpatient (BNVA) | payer MEDICARE, SELFPAY | PROVIDERS: PCP Internal Medicine; Visit Provider Registered Nurse | DX: R42 Dizziness and giddiness (principal); G47.00 Insomnia, unspecified; G43.109 Migraine with aura, not intractable, without status migrainosus; G45.9 Transient cerebral ischemic attack, unspecified; I67.89 Other cerebrovascular disease; M50.90 Cervical disc disorder, unspecified, unspecified cervical region; F41.9 Anxiety disorder, unspecified | CPT/HCPCS: 99212 ==